=== PATIENT | male | born 1965 | race Caucasian/White ===

== ENCOUNTER 2016-09-03 08:52 | Emergency (ER) | payer MEDICAID ==
[~2016-09-03] VITALS: Ht 172.7 cm; Wt 59.0 kg
[~2016-09-03 08:52] MED LIST: ASA OR; ASPIRIN 81MG TA81 MG PO; BACTRIM DS 8001 TAB PO; BISOPROLOL 5MG T5 MG PO; BUPROPION HCL150 M2 PO; DIPROLENE AF0.05% TP; DOXYCYCLINE HY100 M1 PO; FIORICET 325 MG1 TAB; IMDUR 30MG. TAB30 MG PO; IMDUR30 MG PO; KEFLEX 500MG.500 MG PO; LIPITOR20 MG PO; MIGRAINE MED OR; NITROGLYCERIN0.4 M1 SL; NOMEDS XX; NORCO 325 MG-101 TAB PO; OMEPRAZOLE D/R20 MG PO; PHENERGAN 25MG.25 M1 PO; PRAVASTATIN 20M20 MG PO; PROTONIX 40MG T40 MG PO; PROZAC 20MG CAP20 MG PO; RANEXA500 M1 PO; ZOFRAN ODT4 MG PO; ZOFRAN4 MG PO; [UNRECOGNIZED DRUG - REMARK] OR; [UNRECOGNIZED DRUG - REMARK] OR
[2016-09-03] MEDS ORDERED: ZOFRAN ODT4 MG PO (09:40)
--- NOTE | 2016-09-03 09:40 | Urgent Treatment Center Report ---
History of Present Issue Date/Time Seen by Provider 09/03/16 0920 Visit Reason Pt arrived:Walked Presenting Problem:PT STATES VOMITING THAT BEGAN LAST NIGHT. STATES MID ABDOMINAL PAIN THAT EASES AFTER HE VOMITS. DENIES DIARRHEA. DENIES ANY OTHER SYMPTOMS AT THIS TIME. Location if Accident: Onset of symptoms date/time:09/03/16/ or onset unknown for:MEDICAL HX UNKNOWN Have you (or family members/close friends) recently traveled outside the [place]? N If Yes, where/when: Have you had exposure to infectious disease within the past month? TB? Other? Specify: Patient states that last night he was awoken from sleep with the urge to vomit, states that right before he vomits he gets a cramping like pain in his upper abdomen then vomits and he feels better states that he has nausea the pain is like a cramping pain that comes and goes ALLERGIES Coded Allergies: Penicillins (07/12/15) Home Medications Reported Medications No Known Home Medications History Medical History General CAD? Yes Angina: Yes [place]: No Hypertension? Yes Hyperlipidemia? Yes CHF? No DVT? No PE? No COPD? Yes Asthma? No Anemia? No GERD? No Gastric ulcers? No GI Bleed? No Hernia? No Thyroid Problems? No Hypothyroidism? No CVA? No Seizures? No Diabetes? No Renal Insuffiency? No UTI? No Stones? No BPH? No GB Disease: No Nephritic Syndrome? No Asplenia? No Hepatitis? No Sickle Cell Disease? No Arthritis? No Migraines? No Cataracts? No Glaucoma? No MRSA? No HIV? No TB? No Anxiety? Yes Depression? Yes Cancer? No Immunization HX DT/Tetanus 11/02/09 Flu Refused Pneumonia Refuses Surgical Hx Previous Surgery?Y NECK 1995 CARDIAC STENTS X2 12/12 Family History Family HX Diabetes Yes CAD Yes Hypertension Yes Hyperlipidemia Yes Cancer Yes TB No Social History Smoking Hx Smoker: Current Every Day Smoker Tobacco: Yes Type Cigarettes Packs/day < 1 Pack Alcohol Alcohol: No Review of Systems All Other Systems Reviewed and Negative Gastrointestinal abdominal pain, nausea, vomiting Physical Exam Vital Signs Vital Signs Date Time Temp Pulse Resp B/P Pulse O2 O2 Flow FiO2 Ox Delivery Rate 09/03 0912 97.9 82 20 117/74 97 09/03 0853 97.9 82 20 117/74 97 General Appearance normal appearance, WD/WN, no apparent distress Respiratory Status Yes: trachea midline, chest symmetrical, non tender chest. No: respiratory distress. 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 No Results/Orders Current Medication Orders Sig/Marin Start time Last Medication Dose Route Stop Time Status Admin Multi-Ingredient GI 60 ML ONCE ONE 09/03 944 AC 09/03 Drug PO 09/0335 Departure Departure Time of Disposition 36 Disposition DC Home or Self Care(routine) Clinical Impression Primary Impression: Vomiting Qualifiers: Vomiting type: unspecified Vomiting Intractability: unspecified Nausea presence: with nausea Qualified Code: R11.2 - Nausea with vomiting, unspecified Condition STABLE Patient Instructions DI for Nausea -- Adult, Nausea and Vomiting-Adult Additional Instructions Patient advised to obtain a family doctor and give paper with list of accepting doctors for further work up Zofran 4mg prn for nausea Avoid spicey and greasy foods Do not eat 2 hours prior to bedtime and sit up at least 30 minutes after eating Discharge Counseling Counseled pt/family regarding diagnosis, medications/RX, home care, follow up needs Prescriptions Current Visit Scripts Ondansetron (Zofran 4MG Odt) 4 MG PO Q6HP PRN NAUSEA AND VOMITING #20 TAB at 0940
[2016-09-03 09:47] VITALS: BP 117/74
== END 2016-09-03 09:47 | disposition home or self-care (01) ==
LOC: ER 08:52 → UTC 09:02
DX: R11.2 Nausea with vomiting, unspecified (principal); I10 Essential (primary) hypertension; Z72.0 Tobacco use

== ENCOUNTER 2016-10-10 10:18 | Emergency (ER) | payer MEDICAID ==
[~2016-10-10] VITALS: Ht 172.7 cm; Wt 59.0 kg
--- NOTE | 2016-10-10 10:39 | Urgent Treatment Center Report ---
History of Present Issue Date/Time Seen by Provider 10/10/16 1039 Visit Reason Pt arrived:Walked Presenting Problem:PT STATES THAT HE FEELS IF HIS BP HAS BEEN ELEVATED FOR THE LAST 2 DAYS SO HE WANTED IT CHECKED TO BE SURE. Location if Accident: Onset of symptoms date/time:/ or onset unknown for:MEDICAL HX UNKNOWN Have you (or family members/close friends) recently traveled outside the [place]? N If Yes, where/when: Have you had exposure to infectious disease within the past month? TB? Other? Specify: Patient states that he felt like his blood pressure has been elevated for the last 2 days but he has no way of checking it at home so he came into the [facility] today to have it checked and see if it was running high or not. States that he is having no other complaints just yesterday felt like he usually does when his blood pressure is elevated ALLERGIES Coded Allergies: Penicillins (09/17/16) History Medical History General CAD? Yes Angina: Yes [place]: No Hypertension? Yes Hyperlipidemia? Yes CHF? No DVT? No PE? No COPD? Yes Asthma? No Anemia? No GERD? No Gastric ulcers? No GI Bleed? No Hernia? No Thyroid Problems? No Hypothyroidism? No CVA? No Seizures? No Diabetes? No Renal Insuffiency? No UTI? No Stones? No BPH? No GB Disease: No Nephritic Syndrome? No Asplenia? No Hepatitis? No Sickle Cell Disease? No Arthritis? No Migraines? No Cataracts? No Glaucoma? No MRSA? No HIV? No TB? No Anxiety? Yes Depression? Yes Cancer? No More? No Immunization HX DT/Tetanus 11/02/09 Flu Refused Pneumonia Refuses Surgical Hx Previous Surgery?Y NECK 1994(lymph nodes rem CARDIAC STENTS X2 12/12 Family History Family HX Diabetes Yes CAD Yes Hypertension Yes Hyperlipidemia Yes Cancer Yes TB No Social History Smoking Hx Smoker: Current Every Day Smoker Tobacco: Yes Type Cigarettes Packs/day < 1 Pack Alcohol Alcohol: No Review of Systems All Other Systems Reviewed and Negative Comment Patient states that he felt like his blood pressure may have been elevated yesterday and today. States that he felt a light headache and he usually does this when his blood pressure is elevated Physical Exam Vital Signs Vital Signs Date Time Temp Pulse Resp B/P Pulse O2 O2 Flow FiO2 Ox Delivery Rate 10/10 1032 98.0 67 16 121/86 99 General Appearance normal appearance, WD/WN, no apparent distress Respiratory Status Yes: trachea midline, chest symmetrical, non tender chest. No: respiratory distress. 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 No Departure Departure Time of Disposition 1043 Disposition DC Home or Self Care(routine) Clinical Impression Primary Impression: Blood pressure check Condition STABLE Patient Instructions High Blood Pressure (Hypertension) (Alternative Therapy), Lifestyle Habits May Lower Risk of Hypertension in Women Additional Instructions Follow up with family doctor to get back on blood pressure medication if needed Return to the [facility] if needed Discharge Counseling Counseled pt/family regarding diagnosis, home care, follow up needs at 1040
--- NOTE | 2016-10-10 10:39 | Urgent Treatment Center Report ---
History of Present Issue Date/Time Seen by Provider 10/10/16 1039 Visit Reason Pt arrived:Walked Presenting Problem:PT STATES THAT HE FEELS IF HIS BP HAS BEEN ELEVATED FOR THE LAST 2 DAYS SO HE WANTED IT CHECKED TO BE SURE. Location if Accident: Onset of symptoms date/time:/ or onset unknown for:MEDICAL HX UNKNOWN Have you (or family members/close friends) recently traveled outside the [place]? N If Yes, where/when: Have you had exposure to infectious disease within the past month? TB? Other? Specify: Patient states that he felt like his blood pressure has been elevated for the last 2 days but he has no way of checking it at home so he came into the [facility] today to have it checked and see if it was running high or not. States that he is having no other complaints just yesterday felt like he usually does when his blood pressure is elevated ALLERGIES Coded Allergies: Penicillins (09/17/16) History Medical History General CAD? Yes Angina: Yes [place]: No Hypertension? Yes Hyperlipidemia? Yes CHF? No DVT? No PE? No COPD? Yes Asthma? No Anemia? No GERD? No Gastric ulcers? No GI Bleed? No Hernia? No Thyroid Problems? No Hypothyroidism? No CVA? No Seizures? No Diabetes? No Renal Insuffiency? No UTI? No Stones? No BPH? No GB Disease: No Nephritic Syndrome? No Asplenia? No Hepatitis? No Sickle Cell Disease? No Arthritis? No Migraines? No Cataracts? No Glaucoma? No MRSA? No HIV? No TB? No Anxiety? Yes Depression? Yes Cancer? No More? No Immunization HX DT/Tetanus 11/02/09 Flu Refused Pneumonia Refuses Surgical Hx Previous Surgery?Y NECK 1994(lymph nodes rem CARDIAC STENTS X2 12/12 Family History Family HX Diabetes Yes CAD Yes Hypertension Yes Hyperlipidemia Yes Cancer Yes TB No Social History Smoking Hx Smoker: Current Every Day Smoker Tobacco: Yes Type Cigarettes Packs/day < 1 Pack Alcohol Alcohol: No Review of Systems All Other Systems Reviewed and Negative Comment Patient states that he felt like his blood pressure may have been elevated yesterday and today. States that he felt a light headache and he usually does this when his blood pressure is elevated Physical Exam Vital Signs Vital Signs Date Time Temp Pulse Resp B/P Pulse O2 O2 Flow FiO2 Ox Delivery Rate 10/10 1032 98.0 67 16 121/86 99 General Appearance normal appearance, WD/WN, no apparent distress Respiratory Status Yes: trachea midline, chest symmetrical, non tender chest. No: respiratory distress. 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 No Departure Departure Time of Disposition 1043 Disposition DC Home or Self Care(routine) Clinical Impression Primary Impression: Blood pressure check Condition STABLE Patient Instructions High Blood Pressure (Hypertension) (Alternative Therapy), Lifestyle Habits May Lower Risk of Hypertension in Women Additional Instructions Follow up with family doctor to get back on blood pressure medication if needed Return to the [facility] if needed Discharge Counseling Counseled pt/family regarding diagnosis, home care, follow up needs at 1041
[2016-10-10 10:51] VITALS: BP 121/86
== END 2016-10-10 10:52 | disposition home or self-care (01) ==
LOC: UTC 10:18
DX: I10 Essential (primary) hypertension (principal); I25.10 Atherosclerotic heart disease of native coronary artery without angina pectoris; J44.9 Chronic obstructive pulmonary disease, unspecified; F41.8 Other specified anxiety disorders; Z72.0 Tobacco use

== ENCOUNTER 2017-01-22 05:04 | Emergency (ER) | payer MEDICAID ==
[~2017-01-22] VITALS: Ht 172.7 cm; Wt 59.0 kg
[~2017-01-22 05:04] MED LIST changes: +BACTRIM DS 8001 TA1 PO; +ONDANSETRON4 M1 PO
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
--- OUTSIDE RECORDS SUMMARY | 2017-01-22 05:32 | External Medical Summary Rpt ---
Author Author , VALENTINE GRIJALVA Address Unknown Phone [email or web address] Care Team [email or web address] Care Chief Crna Name Role Phone MARK FLORES, MRAK Unavailable Unavailable SANDRA PARVEZ JETT, Unavailable Unavailable PARVEZ JETT STALLINGS ALL, STALLINGS ALL Unavailable Unavailable [facility] Unavailable Unavailable SERVICE, [facility] Unavailable Unavailable SERVICE, [facility] HOMA, HOMA Unavailable Unavailable [facility] ARIANNE, Unavailable Unavailable [facility] ARIANNE HERBERT RICO, HERBERT Unavailable Unavailable [facility] Unavailable Unavailable INC, [facility] Un[facility] P, [facility] RISA BRYAN, Unavailable Unavailable RISA BRYAN [facility], Unavailable Unavailable [facility] NAOMI SALGADO Unavailable Unavailable CRISTÓBAL LEVIN, OLLIE, Unavailable Unavailable CRISTÓBAL K [facility] Unavailable Unavailable IM[facility]ING [facility], [facility] BEVERLEY MENENDEZ, Unavailable Unavailable BEVERLEY [...] SOTINGEANU SOTINGEANU ADRIÁN, Unavailable Unavailable SOTINGEANU ADRIÁN [facility], Unavailable Unavailable [facility], Unavailable Unavailable [facility] FEROZ CRYSTAL, Unavailable Unavailable FEROZ CRYSTAL Purpose [...] [facility] I209 ANGINA 09-17-2016 [facility] PECTORIS PHYSICIANS UNSPECIFIED GROUP 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 PECTORIS J449 CHRONIC 09-17-2016 [facility] OBSTRUCTIVE PHYSICIANS PULMONARY GROUP DISEASE UNS R071 CHEST PAIN 09-17-2016 [facility] ON [facility]ANS, BREATHING PLLC R079 CHEST PAIN 09-17-2016 [facility]NSPECIF[facility] MEDICAL IMAGING ASS R0989 OT SPEC SX 09-17-2016 [facility] & SIGNS PHYSICIANS INVLV THE GROUP CIRC & RESP SYS K529 NONINFECTIV 09-11-2016 [facility] GASTROENTER INC ITIS & COLITIS UNS R112 NAUSEA WITH 09-03-2016 [facility] UNSPECIFIED INC E785 HYPERLIPIDE 03-08-2016 [facility] JOSE M PHYSICIANS UNSPECIFIED GROUP I119 HYPERTENSIV 03-08-2016 [facility] E HEART PHYSICIANS DISEASE GROUP WITHOUT HEART FAILURE [id number] ASHD NOME 03-08-2016 [facility] COR ARTREY PHYSICIANS W/UNS GROUP ANGINA PECTORIS R072 PRECORDIAL 11-22-2015 [facility] P J0190 ACUTE 10-11-2015 [facility] SINUSITIS PHYSICIANS UNSPECIFIED GROUP J209 ACUTE 10-11-2015 [facility] BRONCHITIS PHYSICIANS UNSPECIFIED GROUP 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 R51 HEADACHE 09-04-2015 [facility] R531 WEAKNESS 09-04-2015 [facility] J42 UNSPECIFIED 07-28-2015 [place] [facility]IS IMAGING ASS R0602 SHORTNESS 07-28-2015 [place] [facility] R634 ABNORMAL 07-28-2015 [facility] R05 COUGH 04-16-2015 [place] [facility] R0789 OTHER CHEST 04-16-2015 [facility] PAIN PHYSICIANS, [facility] R1110 VOMITING 04-16-2015 [facility] UNSPECIFIED MEDICAL IMAGING ASS 346.90 346.90 08-12-2012 [facility] W/O INTRACT MGRN W/O STATUS MIGRAINOSUS 3671 MYOPIA 07-11-2008 [facility] VISION 60695 OTHER 06-02-2008 [facility] DISTORTIONS INC AND ENTOPTIC PHENOMENA 49759 MIGRAINE 06-01-2008 CRISTÓBAL LEVIN W/AURA W/O K INTRACT W/O STATUS MIGRNOSUS 76105 CORTICAL 06-01-2008 LEVIN CRISTÓBAL SENILE K CATARACT 02448 UNSPECIFIED 06-01-2008 [place] [address] LOW VISION 05-17-2008 PARVEZ [facility] ONE EYE NOT MD GAVIN OTHERWISE PSC SPECIFIED 3699 UNSPECIFIED 05-17-2008 [facility] LOSS 7840 HEADACHE 05-13-2008 [facility] [place] [facility] 90562 OTH 03-31-2008 [place] INST FOR MIGRAINE EYEHLTH [...] 30 -1 -1 .0 00 L- ti [place] 00 6- 6- 00 07 MA ve [...] 30 -1 -1 .0 00 L- ti [place] 00 3- 9- 00 07 MA ve [...] SH M AR #3 ON 93 8 WA 00 10 11 00 42 12 RI [...] Procedure DOS Code Location Performer Comment ECG 02835 [facility] ROUTINE 7 [facility] INC INC W/LEAST 12 LDS TRCG ONLY W/O I&R CREATINE 96073 [facility] KINASE 7 [facility] TOTAL INC INC COMPREHEN 29366 [facility] SIVE 7 [facility] METABOLIC INC INC PANEL CREATINE 72655 [facility] KINASE MB 7 [facility] [place] [place] [address] [facility] LACTATE 7 [facility] INC INC ECG 85496 JOE GARCÍA ROUTINE 7 PHYSICIAN U ECG S, PLLC W/LEAST 12 LDS I&R ONLY RADIOLOGI 73845 [place] [facility] EXAM 7 MEDICAL CHEST 2 IMAGING VIEWS ASS FRONTAL&[place] [address] [facility] TROPONIN 7 [facility] QUANTITAT INC INC JACEY BLOOD 64813 [facility] COUNT 7 [facility] COMPLETE INC INC AUTO&AUTO DIFRNTL WBC CULTURE 58035 [facility] BACTERIAL 7 [facility] BLOOD INC INC AEROBIC W/ID ISOLATES INITIAL 32781 [facility] 6 PHYSICIAN MAT CARE/DAY S GROUP 50 MINUTES ECG 84704 [facility] FLORES ROUTINE 6 [facility] W/LEAST P 12 LDS I&R ONLY RADIOLOGI 54821 [place] STALL[facility] ALL C 6 MEDICAL EXAMINATI IMAGING ON CHEST ASS SINGLE VIEW FRONTAL THROMBOPL 06894 [facility] ASTIN 6 Y Y TIME [facility] PARTIAL PLASMA/WH OLE BLOOD INJECTION J1885 [facility] 6 Y Y KETOROLAC [facility] TROMETHAM INE PER 15 MG INFUSION J7030 [facility] NORMAL 6 Y Y SALINE [facility] SOLUTION 1000 CC BASIC 36947 [facility] METABOLIC 6 Y Y [facility] CALCIUM TOTAL CRITICAL 30212 [facility] EXPRESS 6 PHYSICIAN U ADRIÁN ILL/INJUR S, PLLC ED PATIENT INIT 30-74 MIN PROTHROMB 76260 [facility] IN TIME 6 Y Y [facility] INJ J0780 [facility] PROCHLORP 6 Y Y [facility] TO 10 MG INJECTION J3475 [facility] 6 Y Y MAGNESIUM [facility] SULPHATE PER 500 MG THER 14971 [facility] PROPH/DX 6 Y Y NJX IV [facility] PUSH SINGLE/1S T SBST/[place] [address] [facility] ANGIOGRAP 6 Y Y HY [facility] W/CONTRAS T/NONCONT RAST LOCM Q9967 [facility] [phone] 6 Y Y MG/ML [facility] [place] [address] [facility] 6 Y Y HY [facility] W/CONTRAS T/NONCONT RAST GROUND A0425 [facility] MILEAGE 6 AMBULANCE AMBULANCE PER SERVICE SERVICE STATUTE MILE AMBULANCE A0429 [facility] SERVICE 6 AMBULANCE AMBULANCE BLS SERVICE SERVICE EMERGENCY TRANSPORT BLOOD 43846 [facility] COUNT 6 Y Y COMPLETE [facility] AUTO&[place] [address] [facility] TROPONIN 6 Y Y QUANTITAT [facility] JACEY THERAPEUT 80198 [facility] IC 6 Y Y INJECTION [facility] IV PUSH EACH NEW DRUG CT THORAX 43457 [place] [facility] W/O 6 MEDICAL CONTRAST IMAGING MATERIAL ASS BRNCDILAT 50640 [facility] RSPSE 6 [facility] SPMTRY INC INC PRE&POST- BRNCDILAT ADMN GAS 54581 [facility] DILUT/WAS 6 [facility] HOUT LUNG INC INC VOL W/WO DISTRIB VENT&[place] [address] [facility] DIFFUSING 6 [facility] CAPACITY INC INC NONINVASI 26042 [facility] VE 6 [facility] EAR/PULSE INC INC OXIMETRY MULTIPLE DETER COLLECTIO 19574 [facility] N VENOUS 5 [facility] [place] [address] [facility] THYROID 5 [facility] STIMULATI INC INC NG HORMONE TSH COMPREHEN 34039 [facility] SIVE 5 [facility] METABOLIC INC INC PANEL ECG 73647 [facility] ROUTINE 5 [facility] ECG INC INC W/LEAST 12 LDS TRCG ONLY W/O I&R ECG 64627 CARDIOVAS MERLINE ROUTINE 5 CULAR MAT ECG CONSULTAN W/LEAST TS O 12 LDS I&R ONLY RADIOLOGI 21638 [facility] EXAM 5 MEDICAL ARIANNE CHEST 2 IMAGING VIEWS ASS FRONTAL&L ATERAL VISUAL 31035 FIELD BRI XM 9 VISION RISA A UNI/BI W/INTERP EXTENDED EXAM GLUCOSE 72155 [facility] QUANTITAT 8 [facility] JACEY BLOOD INC INC XCPT REAGENT STRIP VISUAL 96850 OLLIE LEVIN FIELD XM 8 CRISTÓBAL Steele UNI/BI W/INTERP EXTENDED EXAM DETERMINA 19153 OLLIE LEVIN TION 8 CRISTÓBAL [place] [address] [facility] TSTG CENTRIFUGAL SCREEN TENDER 8 [facility] CHECKERBO ALISON/FLASH MRI BRAIN 81533 [facility] [place] SCALF, BRAIN 8 RADIOLOGY SOFIA E STEM W/O W/CONTRAS T MATERIAL OPHTH 83759 [place] [facility] 8 FOR PARVEZ XM&EVAL EYEHLTH & INTERMEDI SURG PSC ATE NEW PT Encounters Encounter Start End Date Code Location Performer Type Date OFFICE 21904 [facility] 7 7 [facility] T VISIT 5 INC MINUTES HOSPITAL [facility] - 7 7 [facility] OUTPATIEN INC T OFFICE 51414 [facility] 7 7 [facility] T VISIT 5 INC MINUTES [facility]OSPITAL [facility] - 7 7 [facility] OUTPATIEN INC T OFFICE 20946 [facility] 7 7 [facility] T VISIT 5 INC MINUTES [facility]OSPITAL [facility] - 7 7 [facility] OUTPATIEN INC T EMERGENCY 07896 [facility] 7 7 MEM [facility] DEPARTMEN INC T VISIT MODERATE SEVERITY EMERGENCY 44330 [facility] DEPT 7 7 PHYSICIAN VISIT S, PLLC HIGH SEVERITY& THREAT FUNJ OFFICE 53180 [facility] OUTPATIEN 7 7 PHYSICIAN T VISIT S GROUP 25 MINUTES HOSPITAL [facility] - 7 7 [facility] OUTPATIEN INC T OFFICE 54393 [facility] 7 7 [facility] T VISIT 5 INC MINUTES HOSPITAL [facility] - 7 7 [facility] OUTPATIEN INC T OFFICE 07654 [facility] 7 7 [facility] T VISIT 5 INC MINUTES HOSPITAL [facility] - 7 7 [facility] OUTPATIEN INC T OFFICE 76802 [facility] MERLINE OUTPATIEN 6 6 PHYSICIAN MAT T VISIT S GROUP 25 MINUTES EMERGENCY 36568 [facility] DEPT 6 6 PHYSICIAN SARABJIT VISIT S, [facility] HIGH SEVERITY& THREAT [facility] OFFICE 33490 [facility] OUTPATIEN 6 6 PHYSICIAN RICO T NEW 30 S GROUP MINUTES EMERGENCY 44527 [facility] DEPT 6 6 Y VISIT HOSPITAL HIGH SEVERITY& THREAT [facility] OUTPAT[facility] - 6 6 [facility]PATIEN [facility] - 5 5 [facility] OUTPATIEN [facility]L - 5 5 MEM [facility] 95649 [facility] 5 5 LINDAAR KARIN T VISIT CONSULTAN 25 TS O MINUTES EMERGENCY 99865 JOE [facility] DEPT 5 5 PHYSICIAN VISIT S, PLLC HIGH SEVERITY& THREAT FUNCJ Emergency ZULEYMA MENENDEZ (ER) 3 00:48 3 03:56 [facility] 8 8 [facility] 44174 OLLIE LEVIN, CONSULTAT 8 8 CRISTÓBAL Steele ION NEW/ESTAB PATIENT 60 MIN [address] [address] OFFICE [address] [facility] 8 8 MD Damaso ALONSO SHARON T VISIT PSC 10 MINUTES OFFICE 92135 PARVEZ SALAS CONSULTAT 8 8 MD Damaso ALONSO SHARON ION PSC NEW/ESTAB PATIENT 60 MIN
--- OUTSIDE RECORDS SUMMARY | 2017-01-22 05:33 | External Medical Summary Rpt ---
Author Author VALENTINE Bhagat, [employer] Address Unknown Phone Unavailable
--- OUTSIDE RECORDS SUMMARY | 2017-01-22 05:33 | External Medical Summary Rpt ---
Author Author , VALENTINE GRIJALVA Address Unknown Phone [email or web address] Care Team Providers Care Pewter Fabricator Name Role Phone MARK FLORES Unavailable Unavailable MARK FLORES, EMERSONSON Unavailable Unavailable PARVEZ ARMIJO, Unavailable Unavailable PARVEZ JETT STALLINGS ALL, STALLINGS ALL Unavailable Unavailable [email or web address] Unavailable Unavailable SERVICE, [email or web address] Unavailable Unavailable SERVICE, [facility] HOMA ARIANNE, Unavailable Unavailable HOMA ARIANNE HERBERT RICO, HERBERT Unavailable Unavailable [facility] Unavailable Unavailable INC, [facility] Unavailable Unavailable HOSPITAL P, [facility] RISA BRYAN, Unavailable Unavailable RISA BRYAN [facility], Unavailable Unavailable [facility] NAOMI SALGADO Unavailable Unavailable CRISTÓBAL LEVIN, OLLIE, Unavailable Unavailable CRISTÓBAL K [facility] Unavailable Unavailable IMAGING ASS, [facility] Unavailable Unavailable PLL[facility], [facility] RENUSCH SARABJIT, RENUSCH Unavailable Unavailable SARABJIT [id number], Unavailable Unavailable [id number] DANETTEEK MAXWELL, MAXIMILIANO MOH Unavailable Unavailable SCALF, SOFIA E, Unavailable Unavailable SCALF, SFOIA E MERLINE, MERLINE Unavailable Unavailable [facility], Unavailable Unavailable [facility] ADRIANNA SAMPSON, Unavailable Unavailable HERBERTEADeborahU ADRIÁN [facility], Unavailable Unavailable [facility], Unavailable Unavailable [facility] FEROZ CRYSTAL, Unavailable Unavailable FEROZ CRYSTAL Continuity of Care Document - 03-31-2008 through 2016 Problems Code Diagnosis DOS Provider Status A084 VIRAL 11-13-2016 [facility] UNSPECIFIED I10 ESSENTIAL 10-25-2016 [facility] HYPERTENSIO INC N N390 URINARY 10-25-2016 [facility] INFECTION [facility] SITE NOT SPECIFIED Z720 TOBACCO USE 10-25-2016 [facility] I209 ANGINA 09-17-2016 [facility] PECTORIS PHYSICIANS UNSPECIFIED GROUP I2510 ASHD TEJON 09-17-2016 [facility] CORONARY PHYSICIANS ARTERY W/O GROUP ANGINA PECTORIS J449 CHRONIC 09-17-2016 [facility] OBSTRUCTIVE PHYSICIANS PULMONARY GROUP DISEASE UNS R071 CHEST PAIN 09-17-2016 [facility] ON [facility]YSICIANS, BREATHING [facility] R079 CHEST PAIN 09-17-2016 [place] [facility]PECIFIED [facility] R0989 OTH SPEC SX 09-17-2016 [facility] & SIGNS PHYSICIANS INVLV THE GROUP CIRC & RESP SYS K529 NONINFECTIV 09-11-2016 [facility] E [facility] GASTROENTER INC ITIS & COLITIS UNS R112 NAUSEA WITH 09-03-2016 [facility]ING [facility] UNSPECIFIED INC E785 HYPERLIPIDE 03-08-2016 [facility] JOSE M PHYSICIANS UNSPECIFIED GROUP I119 HYPERTENSIV 03-08-2016 [facility] E HEART PHYSICIANS DISEASE GROUP WITHOUT HEART FAILURE V92404 ASHD TEJON 03-08-2016 [facility] COR ARTREY PHYSICIANS W/UNS GROUP ANGINA PECTORIS R072 PRECORDIAL 11-22-2015 [facility] P J0190 ACUTE 10-11-2015 [facility] SINUSITIS PHYSICIANS UNSPECIFIED GROUP J209 ACUTE 10-11-2015 [facility] BRONCHITIS PHYSICIANS UNSPECIFIED GROUP 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, UNS PLL OCCL/STEN UNS CEREB ART I638 OTHER 09-04-2015 [facility] CEREBRAL AMBULANCE INFARCTION SERVICE R200 ANESTHESIA 09-04-2015 [facility] R51 HEADACHE 09-04-2015 [facility] AMBULANCE SERVICE R531 WEAKNESS 09-04-2015 [facility] J42 UNSPECIFIED 07-28-2015 [place] CHRONIC MEDICAL BRONCHITIS IMAGING ASS R0602 SHORTNESS 07-28-2015 [place] OF BREATH [facility] R634 ABNORMAL 07-28-2015 [facility] R05 COUGH 04-16-2015 [place] [facility] R0789 OTHER CHEST 04-16-2015 [facility] PA[facility], [facility] R1110 VOMITING 04-16-2015 [place] UNSPECIFIED [facility] IM[facility]ING ASS 3671 MYOPIA 07-11-2008 [facility] 78803 OTHER 06-02-2008 [place] [facility] DISTORTIONS INC AND ENTOPTIC PHENOMENA 46664 MIGRAINE 06-01-2008 CRISTÓBAL LEVIN W/AURA W/O K INTRACT W/O STATUS MIGRNOSUS 17088 CORTICAL 06-01-2008 CRISTÓBAL LEVIN SENILE K CATARACT 68068 UNSPECIFIED 06-01-2008 CRISTÓBAL [place] [address] LOW VISION 05-17-2008 PAR[facility] Miller ONE EYE NOT MD GAVIN OTHERWISE PSC SPECIFIED 3699 UNSPECIFIED 05-17-2008 [facility] LOSS 7840 HEADACHE 05-13-2008 [facility] [place] [facility] 07391 OTH 03-31-2008 [place] INST FOR MIGRAINE EYEHLTH & W/O INTRACT SURG PSC W/O STATUS MIGRAINOSUS Medications Na ND Rx Da Fi Fi [...] 30 -1 -1 .0 00 L- ti [place] 00 6- 6- 00 07 MA ve [...] 30 -1 -1 .0 00 L- ti [place] 00 3- 9- 00 07 MA ve [...] 30 #5 91 MG TA BL ET 00 10 01 02 60 30 RI [...] SH M AR #3 ON 93 8 AZ 00 10 11 00 42 12 RI 75 WE Ac ED 05 -3 -0 .0 TE 60 RT ti NI 40 0- 7- 00 71 NAVA ve SO 01 20 20 AI MM NE 72 08 08 D ER 5 PH 10 AR SH M AR MG #3 ON 93 TA 8 BL ET Procedures Procedure DOS [place] [address] [facility] TROPONIN 7 [facility] QUANTITAT INC INC JACEY BLOOD 99559 [facility] COUNT 7 [facility] COMPLETE INC INC AUTO&AUTO DIFRNTL WBC CULTURE 16512 [facility] BACTERIAL 7 [facility] BLOOD INC INC AEROBIC W/ID ISOLATES RADIOLOGI 88156 [facility] C EXAM 7 [facility] CHEST 2 INC INC VIEWS FRONTAL&L ATERAL CREATINE 53526 [facility] KINASE 7 [facility] TOTAL INC INC ECG [address] [facility] ROUTINE 7 [facility] ECG INC INC W/LEAST 12 LDS TRCG ONLY W/O I&R COMPREHEN 24792 [facility] SIVE 7 [facility] METABOLIC INC INC PANEL CREATINE 45291 [facility] KINASE MB 7 [facility] [place] [address] [facility] LACTATE 7 [facility] INC INC ECG 39195 [facility] ROUTINE 7 [facility] W/LEAST P 12 LDS I&R ONLY ECG 74617 [facility] ROUTINE 6 [facility] W/LEAST P 12 LDS I&R ONLY INITIAL 58562 [facility] 6 PHYSICIAN MAT CARE/DAY S GROUP 50 MINUTES RADIOLOGI 28090 [place] STALLINGS ALL C 6 MEDICAL EXAMINATI IMAGING ON [place] [address] [facility] TROPONIN 6 Y Y QUANTITAT [facility] JACEY BLOOD 02716 [facility] COUNT 6 Y Y COMPLETE [facility] AUTO&AUTO DIFRNTL WBC THROMBOPL 09939 [facility] ASTIN 6 Y Y TIME [facility] PARTIAL PLASMA/WH OLE BLOOD INJECTION J1885 [facility] 6 Y Y KETOROLAC [facility] TROMETHAM INE PER 15 MG INFUSION J7030 [facility] NORMAL 6 Y Y SALINE [facility] SOLUTION 1000 CC BASIC 29287 [facility] METABOLIC 6 Y Y PANEL [facility] CALCIUM TOTAL CRITICAL 10864 [facility] 6 PHYSICIAN U ADRIÁN ILL/INJUR S, PLLC ED PATIENT INIT 30-74 MIN GROUND A0425 [facility] MILEAGE 6 AMBULANCE AMBULANCE PER SERVICE SERVICE STATUTE MILE AMBULANCE A0429 [facility] SERVICE 6 AMBULANCE AMBULANCE BLS [place] [address] [facility] ANGIOGRAP 6 Y Y HY [facility] W/CONTRAS T/NONCONT RAST LOCM Q9967 [facility] [phone] 6 Y Y MG/ML [facility] [place] [address] [facility] 6 Y Y HY [facility] W/CONTRAS T/NONCONT RAST THER 13976 [facility] PROPH/DX 6 Y Y NJX IV [facility] PUSH SINGLE/1S T SBST/DRUG THERAPEUT 14049 [facility] IC 6 Y Y INJECTION [facility] IV PUSH EACH NEW DRUG PROTHROMB 00084 [facility] IN TIME 6 Y Y [facility] INJ J0780 [facility] PROCHLORP 6 Y Y [facility] DEPARTMENT TO 10 MG INJECTION J3475 [facility] 6 Y Y MAGNESIUM [facility] SULPHATE PER [address] THORAX 92455 [facility] W/O 6 [facility] CONTRAST INC INC MATERIAL GAS 53231 [facility] DILUT/WAS 6 [facility] HOUT LUNG INC INC VOL W/WO DISTRIB VENT&[place] [address] [facility] DIFFUSING 6 [facility] CAPACITY INC INC NONINVASI 28370 [facility] VE 6 [facility] EAR/PULSE INC INC OXIMETRY MULTIPLE DETER BRNCDILAT 14377 [facility] RSPSE 6 [facility] INC INC PRE&POST- BRNCDILAT ADMN COLLECTIO 63116 [facility] N VENOUS 5 [facility] BLOOD [place] [address] [facility] THYROID 5 [facility] STIMULATI INC INC NG HORMONE TSH COMPREHEN 37019 [facility] ACEVEDOON SIVE 5 [facility] METABOLIC INC INC PANEL ECG 89960 [facility] ROUTINE 5 [facility] ECG INC INC W/LEAST 12 LDS TRCG ONLY W/O I&R ECG 34707 CARDIOVAS [facility] ROUTINE 5 CULAR MAT ECG CONSULTAN W/LEAST TS O 12 LDS I&R ONLY RADIOLOGI 47834 [facility] EXAM 5 MEDICAL ARIANNE CHEST 2 IMAGING VIEWS ASS FRONTAL&L ATERAL VISUAL 57765 FIELD BRI XM 9 VISION RISA A UNI/BI W/INTERP EXTENDED EXAM GLUCOSE 31819 [facility] QUANTITAT 8 [facility] JACEY BLOOD INC INC XCPT REAGENT STRIP VISUAL 74769 OLLIE LEVIN FIELD XM 8 CRISTÓBAL Steele UNI/BI W/INTERP EXTENDED EXAM DETERMINA 15292 OLLIE LEVIN TION 8 CRISTÓBAL [place] [address] PARVEZ SALAS TSTG PROOF READER 8 MD GAVIN R, FEROZ [facility] CHECKERBO ALISON/FLASH MRI BRAIN 81350 [facility] BRAIN 8 [facility] STEM W/O W/CONTRAS T MATERIAL OPHTH [address] [place] [facility] 8 PARVEZ DAVIS XM&EVAL EYEHLTH & INTERMEDI SURG PSC ATE NEW PT Encounters Encounter Start End Date Code Location Performer Type Date OFFICE 96530 [facility] 7 7 [facility] T VISIT 5 INC MINUTES HOSPITAL [facility] - 7 7 [facility] OUTPATIEN INC T OFFICE 19671 [facility] 7 7 [facility] T VISIT 5 INC MINUTES [facility]OSPITAL [facility] - 7 7 [facility] OUTPATIEN INC T OFFICE 80038 [facility] 7 7 [facility] T VISIT 5 INC MINUTES HOSPITAL [facility] - 7 7 [facility] OUTPATIEN INC T OFFICE 81042 [facility] MERLINE OUTPATIEN 7 7 PHYSICIAN T VISIT S GROUP 25 MINUTES HOSPITAL [facility] - 7 7 [facility] OUTPATIEN INC T EMERGENCY 82760 [facility] 7 7 [facility] DEPARTMEN INC T VISIT MODERATE SEVERITY EMERGENCY 49340 JO[facility] SALGADO DEPT 7 7 PHYSICIAN VISIT S, PLLC HIGH SEVERITY& THREAT FUNCJ OFFICE 77900 [facility] OUTPATIEN 7 7 [facility] T VISIT 5 INC MINUTES HOSPITAL [facility] - 7 7 [facility] OUTPATIEN INC T OFFICE 68257 [facility] OUT[facility]IEN 7 7 MEM [facility] T VISIT 5 INC MINUTES HOSPITAL [facility] - 7 7 [facility] OUTPATIEN INC T OFFICE 48523 [facility] MERLINE OUTPATIEN 6 6 PHYSICIAN MAT T VISIT S GROUP 25 MINUTES EMERGENCY 10554 JO[facility] AMIN DEPT 6 6 PHYSICIAN SARABJIT VISIT S, PLLC HIGH SEVERITY& THREAT FUNCJ OFFICE 90020 [facility] HERBERT OUTPATIEN 6 6 PHYSICIAN RICO T NEW 30 S GROUP MINUTES EMERGENCY 71219 UNIVERSIT DEPT 6 6 Y VISIT [facility] HIGH SEVERITY& THREAT [facility] 6 [facility] 6 [facility] 5 5 [facility] [address] CULAR MAT VISIT CONSULTAN 25 TS O MINUTES [facility] - 5 5 [facility] 73323 JOE MAXIMILIANO [facility] DEPT 5 5 PHYSICIAN VISIT S, [facility] HIGH SEVERITY& THREAT [facility] [place] - 8 8 [facility] 28509 OLLIE LEVIN, CONSULTAT 8 8 CRISTÓBAL Steele ION NEW/ESTAB PATIENT 60 MIN [address] [address] OFFICE [address] PARVEZ SALAS [facility] 8 8 MD Damaso ALONSO SHARON T VISIT PSC 10 MINUTES OFFICE 71404 PARVEZ SALAS CONSULTAT 8 8 MD Damaso ALONSO FEROZ ION PSC NEW/ESTAB PATIENT 60 MIN
--- OUTSIDE RECORDS SUMMARY | 2017-01-22 05:33 | External Medical Summary Rpt ---
Demographics Preferred Language Arabic Marital Status Unknown Oriental Orthodox Affiliation Unknown Race Unknown Ethnic Group Unknown Author Author , VALENTINE GRIJALVA Address Unknown Phone Immunization Unable to retrieve immunization data due to connection failure with Immunization Registry. Please try again later.
--- OUTSIDE RECORDS SUMMARY | 2017-01-22 05:33 | External Medical Summary Rpt ---
Author Author , VALENTINE GRIJALVA Address Unknown Phone [email or web address] Care Team Providers Care Hardware Manager Name Role Phone MARK FLORES Unavailable Unavailable MARK FLORES, EMERSONSON Unavailable Unavailable PARVEZ ARMIJO, Unavailable Unavailable PARVEZ JETT STALLINGS ALL, STALLINGS ALL Unavailable Unavailable [facility] Unavailable Unavailable SERVICE, [facility] Unavailable Unavailable SERVICE, [facility] HOMA ARIANNE, Unavailable Unavailable HOMA ARIANNE HERBERT RICO, HERBERT Unavailable Unavailable [facility] Unavailable Unavailable INC, [facility] Unavailable Unavailable HOSPITAL P, [facility] RISA BRYAN, Unavailable Unavailable RISA BRYAN [facility], Unavailable Unavailable [facility] NAOMI SALGADO Unavailable Unavailable CRISTÓBAL LEVIN, OLLIE, Unavailable Unavailable CRISTÓBAL K [facility] Unavailable Unavailable IMAGING [facility], [facility] Unavailable Unavailable PLL[facility], [facility] RENUSCH SARABJIT, RENUSCH Unavailable Unavailable SARABJTI [id number], Unavailable Unavailable [id number] DANETTEEK MAXWELL, MAXIMILIANO MOH Unavailable Unavailable SCALF, SOFIA E, Unavailable Unavailable SCALF, SOFIA E MERLINE, MERLINE Unavailable Unavailable MERLINE MAT, Unavailable Unavailable [facility] MAT ADRIANNA SAMPSON, Unavailable Unavailable HERBERTEADeborahU ADRIÁN [facility], Unavailable Unavailable [facility], Unavailable Unavailable 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 J449 CHRONIC 09-17-2016 [facility] OBSTRUCTIVE PHYSICIANS PULMONARY GROUP DISEASE UNS R071 CHEST PAIN 09-17-2016 [facility] ON [facility], BREATHING [facility] R079 CHEST PAIN 09-17-2016 [place] UNSPECIFIED [facility] R0989 OTH SPEC SX 09-17-2016 [facility] & SIGNS PHYSICIANS INVLV THE GROUP CIRC & RESP SYS K529 NONINFECTIV 09-11-2016 [facility] GASTROENTER INC ITIS & COLITIS UNS R112 NAUSEA WITH 09-03-2016 [facility] UNSPECIFIED INC E785 HYPERLIPIDE 03-08-2016 [facility] JOSE M PHYSICIANS UNSPECIFIED GROUP I119 HYPERTENSIV 03-08-2016 [facility] E HEART PHYSICIANS DISEASE GROUP WITHOUT HEART FAILURE J59156 ASHD KOBUK 03-08-2016 [facility] COR ARTREY PHYSICIANS W/UNS GROUP ANGINA PECTORIS R072 PRECORDIAL 11-22-2015 PSYCHIATRIC P J0190 ACUTE 10-11-2015 [facility] SINUSITIS PHYSICIANS UNSPECIFIED GROUP J209 ACUTE 10-11-2015 [facility] BRONCHITIS PHYSICIANS UNSPECIFIED GROUP 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 J42 UNSPECIFIED 07-28-2015 [place] CHRONIC [facility]ICAL BRONCHITIS IMAGING ASS R0602 SHORTNESS 07-28-2015 [place] OF [facility] R634 ABNORMAL 07-28-2015 [facility] R05 COUGH 04-16-2015 [place] [facility] R0789 OTHER CHEST 04-16-2015 [facility], [facility] R1110 VOMITING 04-16-2015 [place] UNSPECIFIED [facility] 3671 MYOPIA 07-11-2008 [facility] VISION 00752 OTHER 06-02-2008 [facility] DISTORTIONS INC AND ENTOPTIC PHENOMENA 41142 MIGRAINE 06-01-2008 CRISTÓBAL LEVIN W/AURA W/O K INTRACT W/O STATUS MIGRNOSUS 44089 CORTICAL 06-01-2008 CRISTÓBAL LEVIN SENILE K CATARACT 82601 UNSPECIFIED 06-01-2008 CRISTÓBAL [place] [address] LOW VISION 05-17-2008 PARVEZ Miller ONE EYE NOT MD GAVIN OTHERWISE PSC SPECIFIED 3699 UNSPECIFIED 05-17-2008 [facility] LOSS 7840 HEADACHE 05-13-2008 [facility] [place] [facility] 80321 OTH 03-31-2008 [place] INST FOR MIGRAINE EYEHLTH [...] [place] [address] [facility] TROPONIN 7 [facility] QUANTITAT INC INC JACEY BLOOD 79027 [facility] COUNT 7 [facility] COMPLETE INC INC AUTO&AUTO DIFRNTL WBC CULTURE 52811 [facility] BACTERIAL 7 [facility] BLOOD INC INC AEROBIC W/ID ISOLATES RADIOLOGI 14812 [facility] C EXAM 7 [facility] CHEST 2 INC INC VIEWS FRONTAL&L ATERAL CREATINE 27783 [facility] KINASE 7 [facility] TOTAL INC INC ECG 54906 [facility] ROUTINE 7 [facility] ECG INC INC W/LEAST 12 LDS TRCG ONLY W/O I&R COMPREHEN 91644 [facility] SIVE 7 [facility] METABOLIC INC INC PANEL CREATINE 69701 [facility] KINASE MB 7 [facility] [place] [address] [facility] LACTATE 7 [facility] INC INC ECG 68663 [facility] FLORES ROUTINE 7 [facility] W/LEAST P 12 LDS I&R ONLY ECG 06467 [facility] FL[facility] ROUTINE 6 [facility] W/LEAST P 12 LDS I&R ONLY INITIAL 00022 [facility] 6 PHYSICIAN MAT CARE/DAY S GROUP 50 MINUTES RADIOLOGI 02344 [place] STALLINGS ALL C 6 MEDICAL EXAMINATI IMAGING ON [place] [address] [facility] TROPONIN 6 Y Y QUANTITAT [facility] JACEY BLOOD 31907 [facility] COUNT 6 Y Y COMPLETE [facility] AUTO&AUTO DIFRNTL WBC THROMBOPL 50057 [facility] ASTIN 6 Y Y TIME [facility] PARTIAL PLASMA/WH OLE BLOOD INJECTION J1885 [facility] 6 Y Y KETOROLAC [facility] TROMETHAM INE PER 15 MG INFUSION J7030 [facility] NORMAL 6 Y Y SALINE [facility] SOLUTION 1000 CC BASIC 67970 [facility] METABOLIC 6 Y Y PANEL [facility] CALCIUM TOTAL CRITICAL 41461 [facility] 6 PHYSICIAN U ADRIÁN ILL/INJUR S, PLLC ED PATIENT INIT 30-[address] [facility] MILEAGE 6 AMBULANCE AMBULANCE PER SERVICE SERVICE STATUTE MILE AMBULANCE A0429 [facility] SERVICE 6 AMBULANCE AMBULANCE BLS [place] [address] [facility] ANGIOGRAP 6 Y Y HY [facility] W/CONTRAS T/NONCONT RAST LOCM Q9967 [facility] 300-399 6 Y Y MG/ML [facility] [place] [address] [facility] 6 Y Y HY [facility] W/CONTRAS T/NONCONT RAST THER 51273 [facility] PROPH/DX 6 Y Y NJX IV [facility] PUSH SINGLE/1S T SBST/DRUG THERAPEUT 08068 [facility] IC 6 Y Y INJECTION [facility] IV PUSH EACH NEW DRUG PROTHROMB 87836 [facility] IN TIME 6 Y Y [facility] INJ J0780 [facility] PROCHLORP 6 Y Y [facility] TO 10 MG INJECTION J3475 [facility] 6 Y Y MAGNESIUM [facility] SULPHATE PER [address] THORAX 46540 [facility] W/O 6 [facility] CONTRAST INC INC MATERIAL GAS 61188 [facility] DILUT/WAS 6 [facility] HOUT LUNG INC INC VOL W/WO DISTRIB VENT&[place] [address] [facility] DIFFUSING 6 [facility] CAPACITY INC INC NONINVASI 38498 [facility] VE 6 [facility] EAR/PULSE INC INC OXIMETRY MULTIPLE DETER BRNCDILAT 04570 [facility] RSPSE 6 [facility] SPMTRY INC INC PRE&POST- BRNCDILAT ADMN COLLECTIO 24680 [facility] N VENOUS 5 [facility] BLOOD [place] [address] [facility] THYROID 5 [facility] STIMULATI INC INC NG HORMONE TSH COMPREHEN 74290 [facility] ACEVEDOON SIVE 5 [facility] HOSP METABOLIC INC INC PANEL ECG 90098 [facility] ROUTINE 5 [facility]OS[facility] ECG INC INC W/LEAST 12 LDS TRCG ONLY W/O I&R ECG 58670 CARDIOVAS [facility] ROUTINE 5 CULAR MAT ECG CONSULTAN W/LEAST TS O 12 LDS I&R ONLY RADIOLOGI 16715 [facility] EXAM 5 MEDICAL ARIANNE CHEST 2 IMAGING VIEWS ASS FRONTAL&L ATERAL VISUAL 87254 FIELD BRI XM 9 VISION RISA A UNI/BI W/INTERP EXTENDED EXAM GLUCOSE 97692 [facility] QUANTITAT 8 [facility] HOSP JACEY BLOOD INC INC XCPT REAGENT STRIP VISUAL 52897 OLLIE LEVIN FIELD XM 8 CRISTÓBAL Steele UNI/BI W/INTERP EXTENDED EXAM DETERMINA 27926 OLLIE LEVIN TION 8 CRISTÓBAL [place] [address] PARVEZ SALAS TSTG CORRAL BOSS 8 MD GAVIN R, FEROZ [facility] CHECKERBO ALISON/FLASH MRI BRAIN 63640 [facility] BRAIN 8 [facility] STEM W/O W/CONTRAS T MATERIAL OPHTH 56757 [place] [facility] 8 PARVEZ DAVIS XM&EVAL EYEHLTH & INTERMEDI SURG PSC ATE NEW PT Encounters Encounter Start End Date Code Location Performer Type Date OFFICE 01023 [facility] 7 7 [facility] T VISIT 5 INC MINUTES HOSPITAL [facility] - 7 7 [facility] OUTPATIEN INC T OFFICE 42363 [facility] 7 7 [facility] T VISIT 5 INC MINUTES HOSPITAL [facility] - 7 7 [facility] OUTPATIEN INC T OFFICE 41588 [facility] OUT[facility] 7 7 [facility] T VISIT 5 INC MINUTES HOSPITAL [facility] - 7 7 [facility] OUTPATIEN INC T OFFICE 38452 [facility] MERLINE OUTPATIEN 7 7 PHYSICIAN T VISIT S GROUP 25 MINUTES HOSPITAL [facility] - 7 7 [facility] OUTPATIEN INC T EMERGENCY 22327 [facility] 7 7 MEM HOS[facility] DEPARTMEN INC T VISIT MODERATE SEVERITY EMERGENCY 65978 JOE SALGADO DEPT 7 7 PHYSICIAN VISIT S, PLLC HIGH SEVERITY& THREAT FUNCJ OFFICE 72987 [facility] OUTPATIEN 7 7 MEM [facility] T VISIT 5 INC MINUTES HOSPITAL [facility] - 7 7 [facility] OUTPATIEN INC T OFFICE 71159 [facility] OUTPATIEN 7 7 MEM HOS[facility] T VISIT 5 INC MINUTES HOSPITAL [facility] - 7 7 [facility] OUTPATIEN INC T OFFICE 92854 [facility] MERLINE OUTPATIEN 6 6 PHYSICIAN MAT T VISIT S GROUP 25 MINUTES EMERGENCY 32182 JOE AMIN DEPT 6 6 PHYSICIAN SARABJIT VISIT S, PLLC HIGH SEVERITY& THREAT FUNCJ OFFICE 22040 [facility] HERBERT OUTPATIEN 6 6 PHYSICIAN RICO T NEW 30 S GROUP MINUTES EMERGENCY 64633 UNIVERSIT DEPT 6 6 Y VISIT [facility] HIGH SEVERITY& THREAT [facility]ERSIT - 6 [facility] 6 [facility] - 6 6 [facility] SA[facility]L - 5 5 [facility] OFF[facility] 17704 [facility] CULAR MAT VISIT CONSULTAN 25 TS O MINUTES [facility] SAÚL - 5 5 [facility] EMERGENC[facility] 70814 JOE MAXIMILIANO [facility] 5 5 PHYSICIAN VISIT S, [facility] HIGH SEVERITY& THREAT [facility] ANGELICA - 8 8 [facility] OFFICE 73650 OLLIE LEVIN, CONSULTAT 8 8 CRISTÓBAL Steele ION NEW/ESTAB PATIENT 60 MIN [address] [address] OFFICE [address] PARVEZ SALAS [facility] 8 8 MD Damaso ALONSO SHARON T VISIT PSC 10 MINUTES OFFICE 29219 PARVEZ SALAS CONSULTAT 8 8 MD Damaso ALONSO FEROZ ION PSC NEW/ESTAB PATIENT 60 MIN
--- OUTSIDE RECORDS SUMMARY | 2017-01-22 05:33 | External Medical Summary Rpt ---
Demographics Preferred Language Latvian Marital Status Unknown Shinto Affiliation Unknown Race Unknown Ethnic Group Unknown Author Author , VALENTINE GRIJALVA Address Unknown Phone Immunization Unable to retrieve immunization data due to connection failure with Immunization Registry. Please try again later.
--- NOTE | 2017-01-22 05:35 | Emergency Room Report ---
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 N Clinical Suspician of Infection? N Mental Status: 1 - Regular (Normal Baseline) Sepsis Risk:Low Sepsis Risk Have you (or family members/close friends) recently traveled outside the [place]? N If Yes, where/when: Have you had exposure to infectious disease within the past month? N TB? Other? Specify: Source patient, RN notes reviewed, old records Exam Limitations no limitations Comment pt with vomiting and diarrhea with cramoy abd pain - Cardiac Chest Pain Chest pain indicative of cardiac No Timing/Duration this morning Severity moderate ALLERGIES Coded Allergies: Penicillins (09/17/16) History Medical History General CAD? Yes Angina: Yes PA: No Hypertension? Yes Hyperlipidemia? Yes CHF? No DVT? No PE? No COPD? Yes Asthma? No Anemia? No GERD? No Gastric ulcers? No GI Bleed? No Hernia? No Thyroid Problems? No Hypothyroidism? No CVA? No Seizures? No Diabetes? No Renal Insuffiency? No End Stage Renal Disease? No UTI? No Stones? No BPH? No GB Disease: No Nephritic Syndrome? No Asplenia? No Hepatitis? No Sickle Cell Disease? No Arthritis? No Migraines? No Cataracts? No Glaucoma? No MRSA? No HIV? No TB? No Anxiety? Yes Depression? Yes Cancer? No More? No Immunization Hx DT/Tetanus 11/02/09 Flu Refused Pneumonia Refuses Surgical Hx Previous Surgery?Y NECK 1994(lymph nodes rem CARDIAC STENTS X2 12/12 Family History Family Hx Diabetes Yes CAD Yes Hypertension Yes Hyperlipidemia Yes Cancer Yes TB No Social History Smoking Hx Smoker: Current Every Day Smoker Tobacco: Yes Type Cigarettes Packs/day < 1 Pack Alcohol Alcohol: No Drugs none Review of Systems All Other Systems Reviewed and Negative Constitutional denies fever Eyes denies drainage ENT denies: ear discharge, epistaxis, throat pain. Respiratory denies cough, denies shortness of breath, denies wheezing Cardiovascular denies chest pain, denies palpitations, denies syncope Gastrointestinal see HPI, abdominal pain, diarrhea, nausea, vomiting Genitourinary denies: dysuria, frequency, hesitancy, hematuria. Musculoskeletal denies back pain, denies joint pain, denies neck pain Skin denies rash Psychiatric/Neurological denies headache, denies seizure Physical Exam Vital Signs Vital Signs Date Time Temp Pulse Resp B/P Pulse O2 O2 Flow FiO2 Ox Delivery Rate 01/23 712 97.7 62 18 115/76 100 01/22 0630 56 18 113/70 98 01/22 0526 98.7 72 18 116/63 97 - WBC >12,000 or <4,000 or 10% bands? 2 or more SIRS Criteria Met? B/P:115/76 MAP:80 Creatinine >2.0? UA output<0.5ml/kg/hr for 2 hrs? Platelet count >100,000? Lactate >2.0mmol/1? INR >1.2 or PTT > than 60 sec? Evidence of Organ Dysfunction? Provider documented clinical suspician of infection? N Sepsis Criteria Count: 0 Sepsis Risk: Low Sepsis Risk General Appearance no apparent distress Eye Exam - bilateral eye PERRL, bilateral eye EOMI Ear, Nose, Throat normal ENT inspection Neck supple Respiratory Status No: respiratory distress. Cardiovascular regular rate/rhythm Peripheral Pulses Pulses normal Yes Gastrointestinal soft, no organomegaly, no pulsatile mass, no rebound, rebound Extremities normal inspection Strength 4 Upper Ext (L), 4 Upper Ext (R), 4 Lower Ext (L), 4 Lower Ext (R) Neurologic alert, weigher and charger II-XII nml as tested, no motor/sensory deficits Reflexes Reflexes normal Yes Mental status normal mood/affect Skin intact Medical Decision Making LABS/Meds/Orders Pt receiving controlled substance in ED? No Results/Orders Laboratory Tests 01/22/17 0725: Urine Color YELLOW, Urine Appearance CLEAR, Urine pH 5.5, Ur Specific [place] >= 1.030, Urine Protein NEGATIVE, Urine Ketones NEGATIVE, Urine Blood 2+ H, Urine Nitrate NEGATIVE, Urine Bilirubin NEGATIVE, Urine Urobilinogen 0.2, Ur Leukocyte Esterase NEGATIVE, Urine RBC 5-10, Urine WBC 3-5, Ur Squamous Epith Cells 3-5, Urine Bacteria 2+, Urine Mucus 2+, Urine Glucose NEGATIVE 01/22/17 0545: Lactic Acid 0.6 01/22/17 0545: Creatine Kinase 140, CK-MB (CK-2) Rel Index 0.6, CK and CKMB Interp 0.9, Troponin I < 0.02, ESR 13 01/22/17 0545: Sodium 140, Potassium 3.7, Chloride 105, Carbon Dioxide 27, BUN 14, Creatinine 1.0, Estimated Creat Clear 75, Estimated GFR (MDRD) 79, Glucose 96, Calcium 9.1, Total Bilirubin 0.4, AST 16, ALT 18, Alkaline Phosphatase 75, Total Protein 7.7, Albumin 3.6, Globulin 4.1 H, Albumin/Globulin Ratio 0.9 L, Amylase 70, Lipase 228, WBC 5.3, RBC 4.24 L, Hgb 13.1 L, Hct 40.3 L, MCV 94.9, RDW 12.8, Plt Count 265, MPV 6.8 L, Gran % 60.9, Gran # 3.2, Lymphocytes % 28.9, Monocytes % 7.2, Eosinophils % 2.3, Basophils % 0.6, Lymphocytes # 1.5, Monocytes # 0.4, Eosinophils # 0.1, Basophils # 0.0, PUBS MCHC 32.5, MCH 30.9 Current Medication Orders Sig/Marin Start time Last Medication Dose Route Stop Time Status Admin Ondansetron HCl 0 .STK-MED ONE 01/22 0552 DC .ROUTE Sodium Chloride 1,000 ML .STK-MED ONE 01/22 0551 DC IV Sodium Chloride 1,000 ML .Q1H1M 01/22 0545 DC IV 01/22 0645 Sodium Chloride 10 ML PRN PRN 01/22 0545 AC IV 01/23 0536 Ondansetron HCl 4 MG ONCE ONE 01/22 0530 DC 01/22 IV 01/22 0531 0554 Sodium Chloride 10 ML PRN PRN 01/22 0530 AC IV 01/23 0530 Sodium Chloride 1,000 ML .Q1H1M 01/22 0530 DC 01/22 IV 01/22 0630 0554 Sodium Chloride 10 ML PRN PRN 01/22 0530 AC IV 01/23 0530 Orders Procedure Date/time Status DIET-NOTHING BY MOUTH 01/22 B Active CULTURE, URINE 01/22 725 Active LACTIC ACID 01/22 0535 Complete SED RATE 01/22 0535 Complete CARDIAC ENZYMES 01/[address] ABD/PELVIS REQ 07/26 0531 Complete IV SALINE LOCK 01/22 531 Active URINALYSIS/COMPLETE 01/22 531 Complete LIPASE 01/22 531 Complete CBC WITH AUTO DIFF 01/22 531 Complete CHEM 12 PROFILE 01/22 531 Complete AMYLASE 01/22 531 Complete XRAY/CT/US XRAY/CT/US CT abdomen, pelvis CT interpretation by discussed w/radiologist Time results known: 804 CT Results normal/NAD Departure Departure Time of Disposition 803 Disposition DC Home or Self Care(routine) Clinical Impression Primary Impression: Gastroenteritis Condition STABLE Patient Instructions DI for Vomiting -- Adult Additional Instructions see pcp for follow up Discharge Counseling Counseled pt/family regarding diagnosis, test results, medications/RX, follow up needs ED Critical Care Critical Care No at 0809
[2017-01-22 06:04] LABS: LYMPH # 1.5 K/mm3 (0.7-4.5); LYMPH % 28.9 % (10-50)
[2017-01-22 06:09] LABS: HEMOGLOBIN 13.1 g/dL (14.1-18.0)
[2017-01-22 07:32] LABS: URINE BILIRUBIN - DIPSTICK NEGATIVE (NEG); URINE BLOOD 2+ (NEG)
--- NOTE | 2017-01-22 07:34 | RADIOLOGY REPORT PS360 ---
CT ABD PELVIS W/O CONTRAST CLINICAL INDICATION: Nausea and vomiting N/V/D ORDERING PHYSICIAN: Paul Beckham MD PATIENT AGE: 51 years COMPARISON: 12/09/2014 TECHNIQUE: Axial images obtained with sagittal and coronal reformats. PROCEDURE: Oral Contrast: None IV Contrast: None . FINDINGS: Lung bases are clear. The liver, spleen, adrenal glands, pancreas, and gallbladder have an unremarkable unenhanced CT appearance. No biliary dilatation. No renal calculi or hydronephrosis. No ureteral calculi. Unremarkable urinary bladder. No evidence of intestinal obstruction or free air. No evidence of appendicitis or diverticulitis. No evidence of aneurysm No acute bony anomalies. IMPRESSION: No acute intra-abdominal or pelvic pathology apparent
[2017-01-22 08:15] VITALS: BP 115/76
== END 2017-01-22 08:16 | disposition home or self-care (01) ==
LOC: ER 05:04
PROVIDERS: Emergency Medicine
DX: K52.9 Noninfective gastroenteritis and colitis, unspecified (principal); I10 Essential (primary) hypertension; J44.9 Chronic obstructive pulmonary disease, unspecified
CPT/HCPCS: J2405

== ENCOUNTER 2017-06-11 19:47 | Observation (INO) | payer MEDICAID ==
[~2017-06-11] VITALS: Ht 172.7 cm; Wt 59.6 kg
[2017-06-11 19:49] VITALS: BP 151/98
[2017-06-11 20:03] LABS: HEMOGLOBIN 13.2 g/dL (14.1-18.0); LYMPH # 1.4 K/mm3 (0.7-4.5); LYMPH % 25.5 % (10-50)
[2017-06-11 20:32] LABS: BUN 10 mg/dL (7-18)
--- NOTE | 2017-06-11 20:39 | Emergency Room Report ---
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 Recent fever? N Clinical Suspician of Infection? N Mental Status: 1 - Regular (Normal Baseline) Sepsis Risk:Low Sepsis Risk Have you (or family members/close friends) recently traveled outside the [place]? N If Yes, where/when: Have you had exposure to infectious disease within the past month? N TB? Other? Specify: Source patient, RN notes reviewed, old records Exam Limitations no limitations Comment pt with known card disease with 25 min episode of ant chest pain with rad to lt upper ext presents for follow up Cardiac Chest Pain Chest pain indicative of cardiac Yes Timing/Duration 1-3 hours, gone now Severity/Quality moderate, pressure Location central Chest Pain Radiation arm(s) Activities at Onset light activity Nitro Today/Relief no nitro taken today Aspirin Treatment Today 325 mg x 1, provided by ED Beta river treatment today no beta river taken Cardiac risk factors + cardiovascular disease, + family history Prior Workup/Intervention stent(s) Timing/Duration this evening Severity moderate ALLERGIES Coded Allergies: Penicillins (09/17/16) History Medical History General CAD? Yes Angina: Yes SD: No Hypertension? Yes Hyperlipidemia? Yes CHF? No DVT? No PE? No COPD? Yes Asthma? No Anemia? No GERD? No Gastric ulcers? No GI Bleed? No Hernia? No Thyroid Problems? No Hypothyroidism? No CVA? No Seizures? No Diabetes? No Renal Insuffiency? No End Stage Renal Disease? No UTI? No Stones? No BPH? No GB Disease: No Nephritic Syndrome? No Asplenia? No Hepatitis? No Sickle Cell Disease? No Arthritis? No Migraines? No Cataracts? No Glaucoma? No MRSA? No HIV? No TB? No Anxiety? Yes Depression? Yes Cancer? No More? No Immunization Hx DT/Tetanus 11/02/09 Flu Refused Pneumonia Refuses Surgical Hx Previous Surgery?Y NECK 1994(lymph nodes rem CARDIAC STENTS X2 12/12 Family History Family Hx Diabetes Yes CAD Yes Hypertension Yes Hyperlipidemia Yes Cancer Yes TB No Social History Smoking Hx Smoker: Current Every Day Smoker Tobacco: Yes Type Cigarettes Packs/day < 1 Pack Alcohol Alcohol: No Drugs none Review of Systems All Other Systems Reviewed and Negative Constitutional denies fever Eyes denies drainage ENT denies: ear discharge, epistaxis, throat pain. Respiratory denies cough, denies shortness of breath, denies wheezing Cardiovascular chest pain, denies palpitations, denies syncope Gastrointestinal see HPI, denies abdominal pain, denies diarrhea, nausea, denies vomiting Genitourinary denies: dysuria, frequency, hesitancy, hematuria. Musculoskeletal denies back pain, denies joint pain, denies joint swelling, denies neck pain Skin denies rash Psychiatric/Neurological denies headache, denies seizure Physical Exam Vital Signs Vital Signs Date Time Temp Pulse Resp B/P Pulse O2 O2 Flow FiO2 Ox Delivery Rate 06/11 2039 98.1 83 16. 117/91 99 06/11 1949 98.1 99 18. 151/98 99 - WBC >12,000 or <4,000 or 10% bands? 2 or more SIRS Criteria Met? B/P:117/91 MAP:115 Creatinine >2.0? UA output<0.5ml/kg/hr for 2 hrs? Platelet count >100,000? Lactate >2.0mmol/1? INR >1.2 or PTT > than 60 sec? Evidence of Organ Dysfunction? Provider documented clinical suspician of infection? N Sepsis Criteria Count: 1 Sepsis Risk: Low Sepsis Risk General Appearance no apparent distress Eye Exam - bilateral eye PERRL, bilateral eye EOMI Ear, Nose, Throat normal ENT inspection Neck supple Respiratory Status No: respiratory distress. Lung Sounds bilateral: lungs clear. 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 No Results/Orders Laboratory Tests 06/11/171954: Sodium 135 L, Potassium 3.6, Chloride 101, Carbon Dioxide 27, BUN 10, Creatinine 1.1, Estimated Creat Clear 67, Estimated GFR (MDRD) 71, Glucose 111 H, Calcium 8.8, Total Bilirubin 0.2, AST 16, ALT 20, Alkaline Phosphatase 92, Creatine Kinase 135, CK-MB (CK-2) Rel Index 0.7, CK and CKMB Interp 1.0, Troponin I < 0.02, Total Protein 7.7, Albumin 3.9, Globulin 3.8 H, Albumin/ Globulin Ratio 1.0 L, WBC 5.6, RBC 4.35 L, Hgb 13.2 L, Hct 39.9 L, MCV 91.5, RDW 13.2, Plt Count 265, MPV 7.6, Gran % 64.4, Gran # 3.6, Lymphocytes % 25.5, Monocytes % 7.7, Eosinophils % 2.1, Basophils % 0.3, Lymphocytes # 1.4, Monocytes # 0.4, Eosinophils # 0.1, Basophils # 0.0, PUBS MCHC 33.1, MCH 30.3, Alcohols 0 Current Medication Orders Sig/Marin Start time Last Medication Dose Route Stop Time Status Admin Clopidogrel Bisulfate 300 MG ONCE ONE 06/11 2100 DC 06/11 PO 06/11 Clopidogrel Bisulfate 0 .STK-MED ONE 06/11 2056 DC PO Aspirin 324 MG ONCE ONE 06/11 2000 DC 06/11 PO 06/11 Sodium Chloride 10 ML PRN PRN 06/11 2000 AC IV 06/12 1955 Aspirin 0 .STK-MED ONE 06/11 1958 DC .ROUTE Orders Procedure Date/time Status Decision to admit 06/11 2059 Active ALCOHOL 06/11 2042 Complete 12 LEAD EKG-[facility] (INITIAL) 06/11 1956 Active ELECTROCARDIOGRAM REQUEST 06/11 1956 Active CHEST(2 VIEWS-NOT PORTABLE) 06/11 1956 Active IV SALINE LOCK 06/11 1956 Active NEWSPAPER DELIVERY COUNSELOR 06/11 1956 Active CBC WITH AUTO DIFF 06/11 1956 Complete CARDIAC ENZYMES 06/11 1956 Complete CHEM 12 PROFILE 06/11 1956 Complete CM/EKG CM/non destructive evaluation manager Rhythm Normal Sinus Rhythm EKG non-spec. ST/Twave chgs XRAY/CT/US XRAY/CT/US XRAY chest XR interpretation by reviewed by me Xray Results abnormal (nodules ) TONE Score for N-Stemi/Angina TONE N-STEMI SCORE TONE N-STEMI SCORE Response Value Age of patient Less than 65 yrs 0 Number of risk factors for CAD Presence of 3 or more 1 Prior coronary artery stenosis (seen in angiography) 50% or more 1 ST-Segment deviation on ECG (>1 min) Absent 0 Prior aspirin intake ASA intake in last 7 days 1 Severe anginal chest pain No or 1 episode in 24h 0 Elevated cardiac markers(CK-MB or troponin) Absent 0 Total 3 Risk Stratification 3-4= Medium Risk Patients Departure Departure Time of Disposition 2100 Disposition Still a Patient Clinical Impression Primary Impression: Chest pain Qualifiers: Chest pain type: precordial pain Qualified Code: R07.2 - Precordial pain Condition STABLE Referrals Dm Orellana MD (Family) discussed with dr orellana and dr rick ED Critical Care Critical Care No at [phone]
--- NOTE | 2017-06-11 20:39 | Emergency Room Report ---
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 Recent fever? N Clinical Suspician of Infection? N Mental Status: 1 - Regular (Normal Baseline) Sepsis Risk:Low Sepsis Risk Have you (or family members/close friends) recently traveled outside the [place]? N If Yes, where/when: Have you had exposure to infectious disease within the past month? N TB? Other? Specify: Source patient, RN notes reviewed, old records Exam Limitations no limitations Comment pt with known card disease with 25 min episode of ant chest pain with rad to lt upper ext presents for follow up Cardiac Chest Pain Chest pain indicative of cardiac Yes Timing/Duration 1-3 hours, gone now Severity/Quality moderate, pressure Location central Chest Pain Radiation arm(s) Activities at Onset light activity Nitro Today/Relief no nitro taken today Aspirin Treatment Today 325 mg x 1, provided by ED Beta river treatment today no beta river taken Cardiac risk factors + cardiovascular disease, + family history Prior Workup/Intervention stent(s) Timing/Duration this evening Severity moderate ALLERGIES Coded Allergies: Penicillins (09/17/16) History Medical History General CAD? Yes Angina: Yes AR: No Hypertension? Yes Hyperlipidemia? Yes CHF? No DVT? No PE? No COPD? Yes Asthma? No Anemia? No GERD? No Gastric ulcers? No GI Bleed? No Hernia? No Thyroid Problems? No Hypothyroidism? No CVA? No Seizures? No Diabetes? No Renal Insuffiency? No End Stage Renal Disease? No UTI? No Stones? No BPH? No GB Disease: No Nephritic Syndrome? No Asplenia? No Hepatitis? No Sickle Cell Disease? No Arthritis? No Migraines? No Cataracts? No Glaucoma? No MRSA? No HIV? No TB? No Anxiety? Yes Depression? Yes Cancer? No More? No Immunization Hx DT/Tetanus 11/02/09 Flu Refused Pneumonia Refuses Surgical Hx Previous Surgery?Y NECK 1994(lymph nodes rem CARDIAC STENTS X2 12/12 Family History Family Hx Diabetes Yes CAD Yes Hypertension Yes Hyperlipidemia Yes Cancer Yes TB No Social History Smoking Hx Smoker: Current Every Day Smoker Tobacco: Yes Type Cigarettes Packs/day < 1 Pack Alcohol Alcohol: No Drugs none Review of Systems All Other Systems Reviewed and Negative Constitutional denies fever Eyes denies drainage ENT denies: ear discharge, epistaxis, throat pain. Respiratory denies cough, denies shortness of breath, denies wheezing Cardiovascular chest pain, denies palpitations, denies syncope Gastrointestinal see HPI, denies abdominal pain, denies diarrhea, nausea, denies vomiting Genitourinary denies: dysuria, frequency, hesitancy, hematuria. Musculoskeletal denies back pain, denies joint pain, denies joint swelling, denies neck pain Skin denies rash Psychiatric/Neurological denies headache, denies seizure Physical Exam Vital Signs Vital Signs Date Time Temp Pulse Resp B/P Pulse O2 O2 Flow FiO2 Ox Delivery Rate 06/11 2039 98.1 83 16. 117/91 99 06/11 1949 98.1 99 18. 151/98 99 - WBC >12,000 or <4,000 or 10% bands? 2 or more SIRS Criteria Met? B/P:117/91 MAP:115 Creatinine >2.0? UA output<0.5ml/kg/hr for 2 hrs? Platelet count >100,000? Lactate >2.0mmol/1? INR >1.2 or PTT > than 60 sec? Evidence of Organ Dysfunction? Provider documented clinical suspician of infection? N Sepsis Criteria Count: 1 Sepsis Risk: Low Sepsis Risk General Appearance no apparent distress Eye Exam - bilateral eye PERRL, bilateral eye EOMI Ear, Nose, Throat normal ENT inspection Neck supple Respiratory Status No: respiratory distress. Lung Sounds bilateral: lungs clear. 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 No Results/Orders Laboratory Tests 06/11/171954: Sodium 135 L, Potassium 3.6, Chloride 101, Carbon Dioxide 27, BUN 10, Creatinine 1.1, Estimated Creat Clear 67, Estimated GFR (MDRD) 71, Glucose 111 H, Calcium 8.8, Total Bilirubin 0.2, AST 16, ALT 20, Alkaline Phosphatase 92, Creatine Kinase 135, CK-MB (CK-2) Rel Index 0.7, CK and CKMB Interp 1.0, Troponin I < 0.02, Total Protein 7.7, Albumin 3.9, Globulin 3.8 H, Albumin/ Globulin Ratio 1.0 L, WBC 5.6, RBC 4.35 L, Hgb 13.2 L, Hct 39.9 L, MCV 91.5, RDW 13.2, Plt Count 265, MPV 7.6, Gran % 64.4, Gran # 3.6, Lymphocytes % 25.5, Monocytes % 7.7, Eosinophils % 2.1, Basophils % 0.3, Lymphocytes # 1.4, Monocytes # 0.4, Eosinophils # 0.1, Basophils # 0.0, PUBS MCHC 33.1, MCH 30.3, Alcohols 0 Current Medication Orders Sig/Marin Start time Last Medication Dose Route Stop Time Status Admin Clopidogrel Bisulfate 300 MG ONCE ONE 06/11 2100 DC 06/11 PO 06/11 Clopidogrel Bisulfate 0 .STK-MED ONE 06/11 2056 DC PO Aspirin 324 MG ONCE ONE 06/11 2000 DC 06/11 PO 06/11 Sodium Chloride 10 ML PRN PRN 06/11 2000 AC IV 06/12 1955 Aspirin 0 .STK-MED ONE 06/11 1958 DC .ROUTE Orders Procedure Date/time Status Decision to admit 06/11 2059 Active ALCOHOL 06/11 2042 [facility] 06/11 1956 Active ELECTROCARDIOGRAM REQUEST 06/11 1956 Active CHEST(2 VIEWS-NOT PORTABLE) 06/11 1956 Active IV SALINE LOCK 06/11 1956 Active CABLE ARMORER 06/11 1956 Active CBC WITH AUTO DIFF 06/11 1956 Complete CARDIAC ENZYMES 06/11 1956 Complete CHEM 12 PROFILE 06/11 1956 Complete CM/EKG CM/trainer Rhythm Normal Sinus Rhythm EKG non-spec. ST/Twave chgs XRAY/CT/US XRAY/CT/US XRAY chest XR interpretation by reviewed by me Xray Results abnormal (nodules ) TONE Score for N-Stemi/Angina TONE N-STEMI SCORE TONE N-STEMI SCORE Response Value Age of patient Less than 65 yrs 0 Number of risk factors for CAD Presence of 3 or more 1 Prior coronary artery stenosis (seen in angiography) 50% or more 1 ST-Segment deviation on ECG (>1 min) Absent 0 Prior aspirin intake ASA intake in last 7 days 1 Severe anginal chest pain No or 1 episode in 24h 0 Elevated cardiac markers(CK-MB or troponin) Absent 0 Total 3 Risk Stratification 3-4= Medium Risk Patients Departure Departure Time of Disposition 2100 Disposition Still a Patient Clinical Impression Primary Impression: Chest pain Qualifiers: Chest pain type: precordial pain Qualified Code: R07.2 - Precordial pain Condition STABLE Referrals Dm Orellana MD (Family) discussed with dr orellana and dr rick ED Critical Care Critical Care No at [phone]
[2017-06-11 20:41] LABS: GFR (ESTIMATED) 71 ML/MIN (>60)
--- OUTSIDE RECORDS SUMMARY | 2017-06-11 21:05 | External Medical Summary Rpt | CCD ---
Author Author , VALENTINE Organization VALENTINE Address Unknown Phone [email or web address] Providers Care Applied Psychology Teacher Name Role Phone BEVERLEY MENENDEZ, Unavailable Unavailable BEVERLEY MENENDEZ Purpose Continuity of Care Document - 08-12-2012 through 2016 Problems Code Diagnosis DOS Provider Status 346.90 346.90 08-12-2012 [facility] W/O INTRACT MGRN W/O STATUS MIGRAINOSUS F32.9 MAJOR DEPRESSIVE DISORDER, [...] ia de te s n re d Sa 63 02 1 No li 80 -1 ne 70 3- Lo 10 20 ng Fl 07 13 er us 5 h Ac 10 ti ML ve Sy ri ng e Vital Signs 08-12-2012 03:58 Name Value Interpretat [...] O complet WBC 013 wbc/hpf ed 00:45 Encounters Encounter Start End Date Code Location Performer Type Date Emergency ZULEYMA MENENDEZ (ER) 3 00:48 3 03:56 [facility]
--- OUTSIDE RECORDS SUMMARY | 2017-06-11 21:05 | External Medical Summary Rpt | CCD ---
Author Author , VALENTINE Organization VALENTINE Address Unknown Phone [email or web address] Care Team Providers Care Skein Yarn Dyer Helper Name Role Phone BEVERLEY MENENDEZ, Unavailable Unavailable BEVERLEY MENENDEZ Purpose Continuity of Care Document - 08-12-2012 through 2016 Problems Code Diagnosis DOS Provider Status 346.90 346.90 08-12-2012 [facility] W/O INTRACT MGRN W/O STATUS MIGRAINOSUS F32.9 [...] ZULEYMA MENENDEZ (ER) 3 00:48 3 03:56 [facility]
--- OUTSIDE RECORDS SUMMARY | 2017-06-11 21:06 | External Medical Summary Rpt | CCD ---
Author Author [employer] Organization [employer] Address Unknown Phone Unavailable Purpose Continuity of Care Document - through 2016
--- OUTSIDE RECORDS SUMMARY | 2017-06-11 21:06 | External Medical Summary Rpt | CCD ---
Demographics Preferred Language [place] Marital Status Unknown Anabaptism Affiliation Unknown Race Unknown Ethnic Group Unknown Author Author VALENTINE Address Unknown Phone Immunization No patient found.
--- OUTSIDE RECORDS SUMMARY | 2017-06-11 21:06 | External Medical Summary Rpt | CCD ---
Demographics Preferred Language Liberian Marital Status Unknown Religion Affiliation Unknown Race Unknown Ethnic Group Unknown Author Author VALENTINE Address Unknown Phone Immunization No patient found.
--- OUTSIDE RECORDS SUMMARY | 2017-06-11 21:06 | External Medical Summary Rpt ---
Author Author VALENTINE Bhagat, [employer] Address Unknown Phone Unavailable Results CBC W Auto Differential panel in Blood Observa Value Referen Units Interpr Notes Date tion ce etation Range Basophils 0 - 0.2 K/MM3 Normal No Jun 11 informati 2016 7:55 [#/volume on in PM ] in source Blood by data Automated count Basophils 0.1 - 2.0 % Normal No Jun 11 informati 2017 7:55 leukocyte on in PM s in source Blood by data Automated count Eosinophi 0.0 - 0.4 K/mm3 Normal No Jun 11 ls informati 2016 7:55 [#/volume on in PM ] in source Blood by data Automated count Eosinophi 0.1 - % Normal No Jun 11 ls/100 12.0 informati 2017 7:55 leukocyte on in PM s in source Blood by data Automated count Granulocy 1.3 - 8.0 K/mm3 Normal No Jun 11 aristides informati 2017 7:55 [#/volume on in PM ] in source Blood by data Automated count Granulocy 37.0 - % Normal No Jun 11 aristides/100 80.0 informati 2016 7:55 leukocyte on in PM s in source Blood by data Automated count Hematocri 42.0 - % Low No Jun 11 t [Volume 52.0 informati 2016 7:55 on in PM Fraction] source of Blood data Hemoglobi 14.1 - g/dL Low No Jun 11 n 18.0 informati 2016 7:55 [Mass/vol on in PM ume] in source Blood data Lymphocyt 0.7 - 4.5 K/mm3 Normal No Jun 11 es informati 2016 7:55 [#/volume on in PM ] in source Unspecifi data ed specimen by Automated count Lymphocyt 10 - 50 % Normal No Jun 11 es informati 2016 7:55 [#/volume on in PM ] in source Unspecifi data ed specimen by Automated count Erythrocy 27 - 31.2 pg Normal No Jun 11 te mean informati 2016 7:55 corpuscul on in PM ar source hemoglobi data n [Entitic mass] Erythrocy 31.8 - g/dl Normal No Jun 11 te mean 35.4 informati 2016 7:55 corpuscul on in PM ar source hemoglobi data n concentra tion [Mass/vol ume] by Automated count Erythrocy 82.2 - fl Normal No Jun 11 te mean 97.8 informati 2016 7:55 corpuscul on in PM ar volume source [Entitic data volume] by Automated count Monocytes 0.1 - 1.0 K/mm3 Normal No Jun 11 informati 2016 7:55 [#/volume on in PM ] in source Blood by data Automated count Monocytes 1.7 - 9.3 % Normal No Jun 11 /100 informati 2016 7:55 leukocyte on in PM s in source Blood by data Automated count Platelet 7.4 - fl Normal No Jun 11 mean 10.4 informati 2016 7:55 volume on in PM [Entitic source volume] data in Blood by Automated count Platelets 142 - 424 K/mm3 Normal No Jun 11 informati 2016 7:55 [#/volume on in PM ] in source Blood data Erythrocy 4.6 - 6.2 M/mm3 Low No Jun 11 aristides informati 2017 7:55 [#/volume on in PM ] in source Amniotic data fluid Erythrocy 11.5 - % Normal No Jun 11 te 17.5 informati 2017 7:55 distribut on in PM ion width source [Entitic data volume] by Automated count Leukocyte 4.8 - K/MM3 Normal No Jun 11 s 10.8 informati 2016 7:55 [#/volume on in PM ] in source Blood data Erythrocyte sedimentation rate by Westergren method Observa Value Referen Units Interpr Notes Date ti ce etation Range Erythrocy 0 - 15 mm/hr Normal No Jan 22 te informati 2016 5:45 sedimenta on in AM tion rate source by data Westergre n method Lactate [Moles/volume] in Blood Observa Value Referen Units Interpr Notes Date ti ce etation Range Lactate 0.4 - 2.0 mmol/L Normal No Jan 22 [Moles/vo informati 2016 5:45 lume] in on in AM Blood source data Amylase [Enzymatic activity/volume] in Serum or Plasma Observa Value Referen Units Interpr Notes Date tion ce etation Range Amylase 25 - 115 U/L Normal No Jan 22 [Enzymati informati 2016 5:45 c on in AM activity/ source volume] data in Serum or Plasma Comprehensive metabolic 2000 panel in Serum or Plasma Observa Value Referen Units Interpr Notes Date tion ce etation Range Albumin/G 1.1 - 1.8 No Low No Jan 22 lobulin informati informati 2016 5:45 [Mass on in on in AM ratio] in source source Serum or data data Plasma Albumin 3.4 - 5.0 gm/dL Normal No Jan 22 [Mass/vol informati 2016 5:45 ume] in on in AM Serum or source Plasma data Alkaline 46 - 116 U/L Normal No Jan 22 phosphata informati 2016 5:45 se on in AM [Enzymati source c data activity/ volume] in Serum or Plasma Bilirubin 0.2 - 1.0 mg/dL Normal No Jan 22 .total informati 2016 5:45 [Mass/vol on in AM ume] in source Serum or data Plasma Urea 7 - 18 mg/dL Normal No Jan 22 nitrogen informati 2016 5:45 [Mass/vol on in AM ume] in source Serum or data Plasma Calcium 8.5 - mg/dL Normal No Jan 22 [Mass/vol 10.1 informati 2016 5:45 ume] in on in AM Serum or source Plasma data Chloride 98 - 107 mmoL/L Normal No Jan 22 [Moles/vo informati 2016 5:45 lume] in on in AM Serum or source Plasma data Carbon 21.0 - mmoL/L Normal No Jan 22 dioxide, 32.0 informati 2016 5:45 total on in AM [Moles/vo source lume] in data Serum or Plasma Creatinin 0.70 - mg/dL Normal No Jan 22 e 1.30 informati 2016 5:45 [Mass/vol on in AM ume] in source Serum or data Plasma Creatinin 50 - 200 ML/MIN Normal No Jan 22 e renal informati 2016 5:45 clearance on in AM source predicted data by Cockcroft -Gault formula Estimated >60 ML/MIN No REFERENCE Jan 22 informati RANGE: 2017 5:45 glomerula on in >60 AM r source ML/MIN/1. filtratio data 73 SQUARE n rate METERSIf (GF this patient is -A merican, then multiply theresult by 1.210. Globulin 1.3 - 3.2 gm/dL High No Jan 22 [Mass/vol informati 2016 5:45 ume] in on in AM Serum source data Glucose 74 - 106 mg/dL Normal No Jan 22 [Mass/vol informati 2016 5:45 ume] in on in AM Serum or source Plasma data Potassium 3.5 - 5.1 mmoL/L Normal No Jan 222016 5:45 [Moles/vo on in AM lume] in source Serum or data Plasma Sodium 136 - 145 mmoL/L Normal No Jan 22 [Moles/vo informati 2016 5:45 lume] in on in AM Serum or source Plasma data Aspartate 15 - 37 U/L Normal No Jan 22 informati 2016 5:45 aminotran on in AM sferase source [Enzymati data c activity/ volume] in Serum or Plasma Alanine 12 - 78 U/L Normal No Jan 22 aminotran inform2016 5:45 sferase on in AM [Enzymati source c data activity/ volume] in Serum or Plasma Protein 6.4 - 8.2 gm/dL Normal No Jan 22 [Mass/vol informati 2016 5:45 ume] in on in AM Serum or source Plasma data Lipase [Enzymatic activity/volume] in Serum or Plasma Observa Value Referen Units Interpr Notes Date tion ce etation Range Lipase 73 - 393 U/L Normal No Jan 22 [Enzymati informati 2016 5:45 c on in AM activity/ source volume] data in Serum or Plasma CBC W Auto Differential panel in Blood Observa Value Referen Units Interpr Notes Date tion ce etation Range Basophils 0 - 0.2 K/MM3 Normal No Jan 222016 5:45 [#/volume on in AM ] in source Blood by data Automated count Basophils 0.1 - 2.0 % Normal No Jan 22 informati 2016 5:45 leukocyte on in AM s in source Blood by data Automated count Eosinophi 0.0 - 0.4 K/mm3 Normal No Jan 22 ls informati 2016 5:45 [#/volume on in AM ] in source Blood by data Automated count Eosinophi 0.1 - % Normal No Jan 22 ls/100 12.0 informati 2016 5:45 leukocyte on in AM s in source Blood by data Automated count Granulocy 1.3 - 8.0 K/mm3 Normal No Jan 22 aristides informati 2017 5:45 [#/volume on in AM ] in source Blood by data Automated count Granulocy 37.0 - % Normal No Jan 22 aristides/100 80.0 informati 2016 5:45 leukocyte on in AM s in source Blood by data Automated count Hematocri 42.0 - % Low No Jan 22 t [Volume 52.0 informati 2016 5:45 on in AM Fraction] source of Blood data Hemoglobi 14.1 - g/dL Low No Jan 22 n 18.0 informati 2016 5:45 [Mass/vol on in AM ume] in source Blood data Lymphocyt 0.7 - 4.5 K/mm3 Normal No Jan 22 es informati 2016 5:45 [#/volume on in AM ] in source Unspecifi data ed specimen by Automated count Lymphocyt 10 - 50 % Normal No Jan 22 es informati 2016 5:45 [#/volume on in AM ] in source Unspecifi data ed specimen by Automated count Erythrocy 27 - 31.2 pg Normal No Jan 22 te mean informati 2016 5:45 corpuscul on in AM ar source hemoglobi data n [Entitic mass] Erythrocy 31.8 - g/dl Normal No Jan 22 te mean 35.4 informati 2016 5:45 corpuscul on in AM ar source hemoglobi data n concentra tion [Mass/vol ume] by Automated count Erythrocy 82.2 - fl Normal No Jan 22 te mean 97.8 informati 2016 5:45 corpuscul on in AM ar volume source [Entitic data volume] by Automated count Monocytes 0.1 - 1.0 K/mm3 Normal No Jan 22 informati 2016 5:45 [#/volume on in AM ] in source Blood by data Automated count Monocytes 1.7 - 9.3 % Normal No Jan 22 informati 2017 5:45 leukocyte on in AM s in source Blood by data Automated count Platelet 7.4 - fl Low No Jan 22 mean 10.4 informati 2016 5:45 volume on in AM [Entitic source volume] data in Blood by Automated count Platelets 142 - 424 K/mm3 Normal No Jan 22 informati 2016 5:45 [#/volume on in AM ] in source Blood data Erythrocy 4.6 - 6.2 M/mm3 Low No Jan 22 aristides informati 2016 5:45 [#/volume on in AM ] in source Amniotic data fluid Erythrocy 11.5 - % Normal No Jan 22 te 17.5 informati 2017 5:45 distribut on in AM ion width source [Entitic data volume] by Automated count Leukocyte 4.8 - K/MM3 Normal No Jan 22 s 10.8 informati 2017 5:45 [#/volume on in AM ] in source Blood data
[2017-06-11 22:10] VITALS: BP 129/86
[2017-06-11 22:17] VITALS: BP 129/86
[2017-06-12] VITALS (10 sets, daily range): BP systolic 99–148; BP diastolic 48–94
--- NOTE | 2017-06-12 01:28 | RADIOLOGY REPORT PS360 ---
CHEST(2 VIEWS-NOT PORTABLE) Ordering Physician: Dm Cerda MD Patient Age: 52 years: Male HISTORY: C/O CHEST PAIN TECHNIQUE: PA and lateral chest COMPARISON :April 16, 2015 chest film most useful also 09/17/[address] a CT chest from June 2015. FINDINGS Chest appears stable overall with no significant new findings. Mild hyperexpansion. . The Borderline/to slightly generous left lexy stable since 2014 as well as more recent August 2016 CXR study.. The heart lexy and mediastinal structures otherwise unremarkable. Minor apical pleural scarring on right. Tiny stable calcified granuloma towards the right base projected over the right sixth rib. A normal to upper normal density of the right anterior sixth rib most likely overlapping soft tissue structures. No pneumothorax nor effusion The T-spine is intact lateral view appears stable. Chest wall and otherwise unremarkable.. IMPRESSION: Stable chest nothing definite acute.. No significant new findings.
[2017-06-12 05:45] LABS: HEMOGLOBIN 12.3 g/dL (14.1-18.0); LYMPH # 1.6 K/mm3 (0.7-4.5)
--- NOTE | 2017-06-12 07:23 | PHARMACY CLINIC NOTE ---
Patient Demographics Patient Demographics Admission date: 06/11/17 Date: 06/12/17 Time: 0723 Allergies Coded Allergies: Penicillins (09/17/16) HEIGHT- FT: 5 IN: 8.00 K.648 VTE General Information Labs: Laboratory Tests 06/12 06/11 0500 1955 Hematology Hgb (14.1 - 18.0 g/dL) 12.3 L 13.2 L Hct (42.0 - 52.0 %) 37.3 L 39.9 L Plt Count (142 - 424 K/mm3) 253 265 Disclaimer The following section includes nursing documentation that has been pulled in for pharmacy review. Patient's VTE score: 2 Patient's VTE Risk: VERY LOW RISK Clinical trial participant? No VTE prophylaxis NQF [id number] VTE prophylaxis ordered? Yes Type of prophylaxis/treatment: VALENTIN at 0723
--- NOTE | 2017-06-12 07:53 | CONSULT NOTE ---
Standard Demographics Patient Demo Date of Consultation: 06/12/17 Referring Provider: Dm Cerda MD Reason for Consultation: Chest pain/Angina PRIMARY DIAGNOSIS: CHEST PAIN Problem list Problem list: 1. CAD A. ARLET to RCA and left anterior descending, 12/2014. 2. COPD 3. Tobacco use, continued 4. HTN 5. Hyperlipidemia, on statin therapy 6. Non-compliance History of present illness: History of present illness: 52-year-old white male with known coronary artery disease and previous coronary artery stenting of his left anterior descending and RCA in 2014 with continued tobacco use presented to the emergency department due to onset of exertion- related chest pain at work yesterday. He describes a sharp left-sided discomfort with some radiation into the LEFT arm with associated chest pressure and heaviness. Symptoms last for about 30 minutes and resolved with rest. He relates that these symptoms are similar to his previous angina symptoms prior to his stenting in the past. He is a no further episodes overnight. His troponins have returned normal. His electrocardiogram is sinus and unchanged from previous tracings. Cardiology consulted for evaluation and recommendations. Review of office records reveal patient has had a similar episode of chest discomfort earlier this year for which a stress test was ordered but denied by insurance. Past Medical History: General: Hypertension Yes CVA No Seizures No TB No COPD Yes Asthma No Diabetes No Angina Yes NM No Hyperlipidemia Yes Urinary No Cancer No Rheumatic H.D. No Ulcers Yes MRSA No GB Disease No Past Surgical HX: Previous Surgery?Y NECK 1994(lymph nodes rem CARDIAC STENTS X2 12/12 Allergies Coded Allergies: Penicillins (09/17/16) Home medications: Reported Medications No Known Home Medications Current Medications: Current Medications Sodium Chloride 10 ML PRN PRN IV Acetaminophen 650 MG Q4HP PRN PO Nicotine 21 MG DAILYP PRN TD Ondansetron HCl 4 MG Q6HP PRN IV Sodium Chloride 1,000 ML .[id number] IV Clopidogrel Bisulfate 300 MG ONCE ONE PO (DC) Clopidogrel Bisulfate 0 .STK-MED ONE PO (DC) Aspirin 324 MG ONCE ONE PO (DC) Sodium Chloride 10 ML PRN PRN IV Aspirin 0 .STK-MED ONE .ROUTE (DC) Immunization HX DT/Tetanus 11/02/09 Flu Refused Pneumonia Refuses TB Test in last year No Family history Family HX Family Hx Insignificant No Diabetes Yes CAD Yes Hypertension Yes Hyperlipidemia Yes Cancer Yes TB No Social Hx: Smoking HX Tobacco Yes Type Cigarettes Packs/day < 1 PACK Are you/the child exposed to second-hand smoke: No Alcohol Alcohol: No Hx of Drug Use Drug Use? No Review of systems: Constitutional No: no symptoms reported. Respiratory No: no symptoms reported. Cardiovascular see HPI, chest pain Gastrointestinal/Abdominal No no symptoms reported Genitourinary No: no symptoms reported. Musculoskeletal No: no symptoms reported. Neurological No: no symptoms reported. Exam: Admission Vital Signs: 1ST Vital Signs Result Date Time Pulse Ox 99 06/11 1949 B/P 151/98 06/11 1949 Temp 98.1 06/11 1949 Pulse 99 06/11 1949 Resp 18. 06/11 1949 O2 Delivery ROOM AIR 06/11 2210 Last Vital Signs: Vital Signs Result Date Time Pulse Ox 97 06/12 400 B/P 99/50 06/12 400 O2 Delivery ROOM AIR 06/12 400 Temp 98.1 06/12 400 Pulse 70 06/12 400 Resp 20 06/12 400 Exam General appearance: alert, awake, no acute distress Neck: no carotid bruit, no JVD Cardiovascular: regular rate & rhythm, no murmur Respiratory: decreased breath sounds but clear ABD: soft, no tenderness Extremities: moves all, no peripheral edema Neuro: alert, intact, oriented Laboratory data: Laboratory Tests 06/12/17 0500: Creatine Kinase 107, CK-MB (CK-2) Rel Index 0.7, CK and CKMB Interp 0.8, Troponin I < 0.02 06/12/17 0500: Sodium 140, Potassium 3.3 L, Chloride 106, Carbon Dioxide 26, BUN 8, Creatinine 0.9, Estimated Creat Clear 83, Estimated GFR (MDRD) 89, Glucose 87, Calcium 8.6, WBC 5.7, RBC 4.09 L, Hgb 12.3 L, Hct 37.3 L, MCV 91.2, RDW 13.2, Plt Count 253, MPV 7.0 L, Gran % 61.8, Gran # 3.5, Lymphocytes % 28.0, Monocytes % 6.6, Eosinophils % 3.2, Basophils % 0.3, Lymphocytes # 1.6, Monocytes # 0.4, Eosinophils # 0.2, Basophils # 0.0, PUBS MCHC 32.8, MCH 29.9 12/14/17 0205: Creatine Kinase 119, CK-MB (CK-2) Rel Index 0.6, CK and CKMB Interp 0.7, Troponin I < 0.02 06/11/171954: Triglycerides 140, Cholesterol 143, LDL Cholesterol 70.0, VLDL Cholesterol 28.0, HDL Cholesterol 45.0 06/11/171954: Sodium 135 L, Potassium 3.6, Chloride 101, Carbon Dioxide 27, BUN 10, Creatinine 1.1, Estimated Creat Clear 67, Estimated GFR (MDRD) 71, Glucose 111 H, Calcium 8.8, Total Bilirubin 0.2, AST 16, ALT 20, Alkaline Phosphatase 92, Creatine Kinase 135, CK-MB (CK-2) Rel Index 0.7, CK and CKMB Interp 1.0, Troponin I < 0.02, Total Protein 7.7, Albumin 3.9, Globulin 3.8 H, Albumin/ Globulin Ratio 1.0 L, WBC 5.6, RBC 4.35 L, Hgb 13.2 L, Hct 39.9 L, MCV 91.5, RDW 13.2, Plt Count 265, MPV 7.6, Gran % 64.4, Gran # 3.6, Lymphocytes % 25.5, Monocytes % 7.7, Eosinophils % 2.1, Basophils % 0.3, Lymphocytes # 1.4, Monocytes # 0.4, Eosinophils # 0.1, Basophils # 0.0, PUBS MCHC 33.1, MCH 30.3, Alcohols 0 Plan Assessment: 1. Chest pain, concerned for recurrent angina in this patient with similar angina symptoms and continued tobacco use. Recommend proceeding with [facility] today. 2. HTN, controlled 3. Hyperlipidemia, LDL 70, on statin therapy 4. Continued tobacco use 5. Hypokalemia, replace Plan: Discussed with Dr. Curry. See above. at 7569
[2017-06-12] MEDS ORDERED: ASPIR-LOW81 MG PO (07:57)
[2017-06-12] MEDS ORDERED: BISOPROLOL 5MG T5 MG PO (07:57)
[2017-06-12] MEDS ORDERED: IMDUR 30MG. TAB30 MG PO (07:58)
[2017-06-12] MEDS ORDERED: LIPITOR20 MG PO (07:58)
[2017-06-12] MEDS ORDERED: PLAVIX 75MG TAB75 MG PO (07:59)
--- NOTE | 2017-06-12 08:37 | HISTORY AND PHYSICAL REPORT ---
Demographics: Admit date: 06/12/17 Chief complaint: chest pain PRIMARY DIAGNOSIS: CHEST PAIN Allergies: Coded Allergies: Penicillins (09/17/16) History of present illness: History of present illness: 52-year-old white male with known coronary artery disease and previous coronary artery stenting of his left anterior descending and RCA in 2014 with continued tobacco use presented to the emergency department due to onset of exertion- related chest pain at work yesterday. He describes a sharp left-sided discomfort with some radiation into the LEFT arm with associated chest pressure and heaviness. Symptoms last for about 30 minutes and resolved with rest. He relates that these symptoms are similar to his previous angina symptoms prior to his stenting in the past. He is a no further episodes overnight. His troponins have returned normal. His electrocardiogram is sinus and unchanged from previous tracings. Cardiology consulted for evaluation and recommendations. Review of office records reveal patient has had a similar episode of chest discomfort earlier this year for which a stress test was ordered but denied by insurance. Above per Cardiology LEONA Troncoso Past medical history: Family HX Diabetes Yes CAD Yes Hypertension Yes Hyperlipidemia Yes Cancer Yes TB No Immunization HX DT/Tetanus 11/02/09 Flu Refused Pneumonia Refuses TB Test in last year No General CAD? Yes Angina: Yes VA: No Hypertension? Yes Hyperlipidemia? Yes CHF? No DVT? No PE? No COPD? Yes Asthma? No Anemia? No GERD? No Gastric ulcers? No GI Bleed? No Hernia? No Thyroid Problems? No Hypothyroidism? No CVA? No Seizures? No Diabetes? No Renal Insuffiency? No UTI? No Stones? No BPH? No GB Disease: No Nephritic Syndrome? No Asplenia? No Hepatitis? No Sickle Cell Disease? No Arthritis? No Migraines? No Cataracts? No Glaucoma? No MRSA? No HIV? No TB? No Anxiety? Yes Depression? Yes Cancer? No More? No Past Surgical HX Previous Surgery?Y NECK 1994(lymph nodes rem CARDIAC STENTS X2 12/12 Current home meds: Reported Medications Aspirin (Aspir-Low) 81 MG PO DAILY BISOPROLOL FUMARATE (Bisoprolol 5MG) 5 MG PO DAILY ISOSORBIDE MONONITRATE (IMDUR 30MG) 30 MG PO DAILY Atorvastatin Calcium (Lipitor 20MG) 20 MG PO QHS CLOPIDOGREL BISULFATE (PLAVIX) 75 MG PO DAILY Social Hx: Smoking HX Tobacco Yes Type Cigarettes Packs/day < 1 PACK Are you/the child exposed to second-hand smoke: No Alcohol Alcohol: No Hx of Drug Use Drug Use? No Patient's support system is fair Review of systems: Constitutional No: no symptoms reported. Eyes No: no symptoms reported. Ears, Nose, Mouth, Throat No no symptoms reported Respiratory No: no symptoms reported. Cardiovascular see HPI Gastrointestinal/Abdominal No no symptoms reported Genitourinary No: no symptoms reported. Musculoskeletal No: no symptoms reported. Skin No: no symptoms reported. Neurological No: no symptoms reported. Psychiatric No: no symptoms reported. Exam: Lab data for last 24 hours: Laboratory Tests 06/12/17 0500: Creatine Kinase 107, CK-MB (CK-2) Rel Index 0.7, CK and CKMB Interp 0.8, Troponin I < 0.02 06/12/17 0500: Sodium 140, Potassium 3.3 L, Chloride 106, Carbon Dioxide 26, BUN 8, Creatinine 0.9, Estimated Creat Clear 83, Estimated GFR (MDRD) 89, Glucose 87, Calcium 8.6, WBC 5.7, RBC 4.09 L, Hgb 12.3 L, Hct 37.3 L, MCV 91.2, RDW 13.2, Plt Count 253, MPV 7.0 L, Gran % 61.8, Gran # 3.5, Lymphocytes % 28.0, Monocytes % 6.6, Eosinophils % 3.2, Basophils % 0.3, Lymphocytes # 1.6, Monocytes # 0.4, Eosinophils # 0.2, Basophils # 0.0, PUBS MCHC 32.8, MCH 29.9 06/12/17 0205: Creatine Kinase 119, CK-MB (CK-2) Rel Index 0.6, CK and CKMB Interp 0.7, Troponin I < 0.02 06/11/171954: Triglycerides 140, Cholesterol 143, LDL Cholesterol 70.0, VLDL Cholesterol 28.0, HDL Cholesterol 45.0 06/11/171954: Sodium 135 L, Potassium 3.6, Chloride 101, Carbon Dioxide 27, BUN 10, Creatinine 1.1, Estimated Creat Clear 67, Estimated GFR (MDRD) 71, Glucose 111 H, Calcium 8.8, Total Bilirubin 0.2, AST 16, ALT 20, Alkaline Phosphatase 92, Creatine Kinase 135, CK-MB (CK-2) Rel Index 0.7, CK and CKMB Interp 1.0, Troponin I < 0.02, Total Protein 7.7, Albumin 3.9, Globulin 3.8 H, Albumin/ Globulin Ratio 1.0 L, WBC 5.6, RBC 4.35 L, Hgb 13.2 L, Hct 39.9 L, MCV 91.5, RDW 13.2, Plt Count 265, MPV 7.6, Gran % 64.4, Gran # 3.6, Lymphocytes % 25.5, Monocytes % 7.7, Eosinophils % 2.1, Basophils % 0.3, Lymphocytes # 1.4, Monocytes # 0.4, Eosinophils # 0.1, Basophils # 0.0, PUBS MCHC 33.1, MCH 30.3, Alcohols 0 Admission vital signs: 1ST Vital Signs Result Date Time Pulse Ox 99 06/11 1949 B/P 151/98 06/11 1949 Temp 98.1 06/11 1949 Pulse 99 06/11 1949 Resp 18. 06/11 1949 O2 Delivery ROOM AIR 06/11 2210 Exam General appearance: normal appearance, alert, active, no acute distress Eyes: normal exam, conjunctiva clear ENT: mucous membranes moist Neck: non-tender, no carotid bruit, no JVD Cardiovascular: normal sinus rhythm, regular rate & rhythm, no murmur, normal peripheral pulses Respiratory: aerating well, clear to auscultation, normal breath sounds ABD: non-distended, normal bowel sounds, no rebound, soft, no tenderness Genitourinary: no dysuria, no hematuria Extremities: moves all Musculoskeletal: equal muscle strength Skin: dry, intact, normal color Neuro: alert, no deficit, normal mood/affect, oriented, speech clear Plan: Problem List 1. Chest pain 2. CAD (coronary artery disease) 3. Tobacco use disorder 4. Hyperlipidemia Plan: NPO for left heart cath later today. at 0840
--- NOTE | 2017-06-12 10:26 | RADIOLOGY REPORT PS360 ---
CARDIAC CATHETERIZATION DATE OF CATHETERIZATION:06/12/2017 10:11 AM PROCEDURES: 1. Left heart catheterization 2. Left ventriculogram 3. Selective coronary angiogram INDICATION FOR TEST: 1. Known coronary artery disease 2. TONE score 3 3. Unstable angina Informed consent was obtained prior to the procedure. COMPLICATIONS: None ESTIMATED BLOOD LOSS: Less than 10 ml. TECHNIQUE: One percent lidocaine used to anesthetize the right anterior aspect of the wrist. The right radial artery was accessed via the Seldinger technique. A 6 [place] sheath was placed in the right radial artery. 2.5 mg of verapamil, 800 mcg of nitroglycerin and 5000 U Heparin were given through the arterial sheath. The trap catheter was also used to perform left heart catheterization and left ventriculography. At the end of the procedure the patient was transferred to the post-op holding area in stable condition for arterial sheath removal. ANGIOGRAPHIC RESULTS: 1. The left main artery long and normal 2. The left anterior descending artery is proximally normal with mild luminal irregularities in the mid LAD and very large bifurcating first diagonal artery which is equal in size to the LAD itself 3. The circumflex artery is nondominant and normal 4. The right coronary artery is a dominant vessel and has mild mid vessel luminal irregularities. Distally in the large posterior descending artery there are stents in the mid segment which are widely patent. One area has a 50-60% concentric in-stent restenotic area at a 2 mm area 5. The RODRIGUEZ ventriculogram reveals 65% 6. The left ventricular end-diastolic pressure 15 mmHg IMPRESSION: 1. Mild nonflow limiting coronary disease in the LAD and very large first diagonal artery 2. Patent stents with a focal moderate in-stent restenotic lesion within the posterior descending artery which is nonflow limiting 3. Normal ejection fraction 4. Normal to mildly elevated LVEDP PLAN: 1. Medical management 2. Risk factor modification 3. Avoidance of tobacco products 4. LDL less than 55 5. Maximize antianginal's
[2017-06-12] MEDS ORDERED: ISOSORBIDE MONO60 MG PO (13:04)
--- NOTE | 2017-06-12 13:09 | DISCHARGE SUMMARY STANDARD ---
Demographics Admit date: 06/12/17 Discharge date: 06/12/17 History of present illness History of present illness 52-year-old white male with known coronary artery disease and previous coronary artery stenting of his left anterior descending and RCA in 2014 with continued tobacco use presented to the emergency department due to onset of exertion- related chest pain at work yesterday. He describes a sharp left-sided discomfort with some radiation into the LEFT arm with associated chest pressure and heaviness. Symptoms last for about 30 minutes and resolved with rest. He relates that these symptoms are similar to his previous angina symptoms prior to his stenting in the past. He is a no further episodes overnight. His troponins have returned normal. His electrocardiogram is sinus and unchanged from previous tracings. Cardiology consulted for evaluation and recommendations. Review of office records reveal patient has had a similar episode of chest discomfort earlier this year for which a stress test was ordered but denied by insurance. Above per [facility] [place] [place] Hospital Course Hospital Course: Patient was admitted for observation. Serial enzymes and electrocardiograms obtained and found to be unremarkable. Cardiology was consulted and decision was made to take him for LEFT heart cath. Angiogram revealed nonflow limiting disease. Recommendation to maximize antianginals and continue dual platelet therapy. He has not had any further chest pain or shortness of breath Discharge home on increased dose of isosorbide. See medication reconciliation for complete list. Follow-up with Dr. Youngblood in 4 days. Follow up with Dr. Curry in 2 weeks. Discharge diagnoses Problem List 1. Chest pain 2. CAD (coronary artery disease) 3. Tobacco use disorder 4. Hyperlipidemia Medications Medications: Discharge meds are as noted. Follow up Follow up in office in: 4 DAYS with: Bhavani SUTTON,Andi Hinson at [id number]
== END 2017-06-12 15:10 | disposition home or self-care (01) ==
LOC: ER 19:47 → 2ND 21:01
PROVIDERS: Emergency Medicine; Internal Medicine
PROC: B2111ZZ Fluoroscopy of Multiple Coronary Arteries using Low Osmolar Contrast (ICD-10-PCS; 2017-06-12)
PROC: B2151ZZ Fluoroscopy of Left Heart using Low Osmolar Contrast (ICD-10-PCS; 2017-06-12)
PROC: 4A023N7 Measurement of Cardiac Sampling and Pressure, Left Heart, Percutaneous Approach (ICD-10-PCS; principal; 2017-06-12 11:00)
DX: I25.110 Atherosclerotic heart disease of native coronary artery with unstable angina pectoris (principal); Z72.0 Tobacco use; Z95.5 Presence of coronary angioplasty implant and graft; R07.9 Chest pain, unspecified
CPT/HCPCS: C1725; C1769; G0378; J1644; Q9967